=== PATIENT | female | born 1945 | race Caucasian/White ===

== ENCOUNTER 2019-01-12 18:20 | Inpatient (IN) | payer MEDICARE ==
[~2019-01-12] VITALS: Ht 167.6 cm; Wt 79.4 kg
[2019-01-12] MEDS ORDERED: Z GUARD REMEDY PASTE 57 GM TUBE TOP PRN (18:45)
[2019-01-12] MEDS ORDERED: AZEL137S7 BNOSTRILS (19:17)
[2019-01-12] MEDS ORDERED: OMEG1CAP74 PO (19:17)
[2019-01-12] MEDS ORDERED: MULT-1094 PO (19:17)
[2019-01-12] MEDS ORDERED: ACET-2154 PO (19:17)
[2019-01-12] MEDS ORDERED: DABI150C PO (19:17)
[2019-01-12] MEDS ORDERED: POLY15DR27 OP (19:17)
[2019-01-12] MEDS ORDERED: CHOL400T PO (19:17)
[2019-01-12] MEDS ORDERED: DRON400T PO (19:17)
[2019-01-12] MEDS ORDERED: ACET-2030 PO (19:17)
[2019-01-12] MEDS ORDERED: METO-356 PO (19:17)
[2019-01-12] MEDS ORDERED: GABA-786 PO (19:17)
[2019-01-12 19:23] VITALS: BP 139/75
[2019-01-12] MEDS: OXYCODONE HCL 5 MG TABLET PO PRN (23:52)
[2019-01-13 04:57] VITALS: BP 124/64
[2019-01-13 08:00] VITALS: BP 99/68
[2019-01-13] MEDS ORDERED: ACETAMINOPHEN ES 500 MG TABLET PO PRN (10:30)
[2019-01-13] MEDS: OMEGA-3 FATTY ACIDS/FISH OIL CAPSULE PO SCH (13:30)
[2019-01-13] MEDS: MULTIVIT, IRON, MIN NO. 8, FA TABLET PO SCH (13:30)
[2019-01-13] MEDS: OXYCODONE HCL 5 MG TABLET PO PRN (14:20)
[2019-01-13 14:55] LABS: *BILIRUBIN,URIN NEGATIVE (NEGATIVE); *CLARITY,URINE CLEAR (CLEAR); *COLOR,URINE YELLOW (YELLOW); *KETONES,URINE NEGATIVE (NEGATIVE); *UROBILINOGEN,URINE 0.2 E.U./dl (NORMAL); LEUKOCYTE ESTERASE ,URINE NEGATIVE (NEGATIVE); NITRITE, URINE NEGATIVE (NEGATIVE); PH,URINE 6.5 (5.0-8.0); UGLUCOSE NEGATIVE (NEGATIVE)
[2019-01-13 15:08] LABS: *BLOOD, URINE TRACE (NEGATIVE)
[2019-01-13 15:09] LABS: RBC,URINE 0-3 /HPF (0-3); SQUAMOUS EPITHELIAL CELL,UR MODERATE /HPF (NONE SEEN)
[2019-01-13 15:10] LABS: MUCUS,URINE FEW /LPF (0-FEW)
[2019-01-13 16:00] VITALS: BP 97/59
[2019-01-13] MEDS ORDERED: GABAPENTIN ENACARBIL 600 MG PO SCH (17:00)
[2019-01-13 18:23] LABS: BASOPHILS % (AUTO) 0.8 % (0.0-2.0); EOSINOPHILS # (AUTO) 0.1 K/uL (0.0-0.7); EOSINOPHILS % (AUTO) 2.1 % (0.0-7.0); HEMATOCRIT 39.5 % (31.2-41.9); HEMOGLOBIN 13.1 g/dL (10.9-14.3); LYMPHOCYTES # (AUTO) 1.4 K/uL (20.0-40.0); LYMPHOCYTES % (AUTO) 36.9 % (20.5-51.5); MEAN CORPUSCULAR HEMOGLOBIN 28.4 uug (24.7-32.8); MEAN CORPUSCULAR HGB CONC 33 g/dL (32.3-35.6); MEAN CORPUSCULAR VOLUME 85.6 fL (75.5-95.3); MONOCYTES # (AUTO) 0.2 K/uL (2.0-10.0); MONOCYTES % (AUTO) 6.6 % (0.0-11.0); NEUTROPHILS % (AUTO) 53.6 % (38.5-71.5); PLATELET COUNT (AUTO) 204 K/uL (179-408); RED BLOOD CELL COUNT(AUTO) 4.62 MIL/uL (3.63-4.92); WHITE BLOOD COUNT (AUTO) 3.8 K/uL (3.8-11.8)
[2019-01-13 18:29] LABS: CARBON DIOXIDE 30 mmol/L (21-32); CHLORIDE 103 mmol/L (98-107); CREATININE 0.8 mg/dL (0.6-1.3); GLUCOSE 138 mg/dL (74-106); POTASSIUM 4.4 mmol/L (3.5-5.1); UREA NITROGEN, BLOOD 13 mg/dL (7-18)
[2019-01-13] MEDS: POLYVINYL ALCOHOL OPHT DROPS 15 ML BOTTLE OP SCH (19:07)
[2019-01-13 21:00] VITALS: BP 131/77
[2019-01-13] MEDS: CEphaleXIN 500 MG CAPSULE PO SCH (21:00)
[2019-01-13] MEDS: GABAPENTIN 300 MG CAPSULE PO SCH (21:06)
[2019-01-14 06:09] VITALS: BP 126/60
[2019-01-14] MEDS: GABAPENTIN 300 MG CAPSULE PO SCH ×3 (06:14→22:00)
[2019-01-14 08:10] VITALS: BP 101/65
[2019-01-14] MEDS ORDERED: Medication Not On Formulary EA (Omega-3 Fatty Acids/Fish Oil (Fish Oil 1,000 Mg Softgel) PO SCH (09:00)
[2019-01-14] MEDS: CEphaleXIN 500 MG CAPSULE PO SCH ×2 (09:31→20:12)
[2019-01-14] MEDS: OXYCODONE HCL 5 MG TABLET PO PRN (09:31)
[2019-01-14] MEDS: OMEGA-3 FATTY ACIDS/FISH OIL CAPSULE PO SCH (09:32)
[2019-01-14] MEDS: POLYVINYL ALCOHOL OPHT DROPS 15 ML BOTTLE OP SCH ×2 (09:32→18:22)
[2019-01-14] MEDS: MULTIVIT, IRON, MIN NO. 8, FA TABLET PO SCH (09:34)
[2019-01-14] MEDS: METOPROLOL SUCCINATE XL 25 MG TAB.SR.24H PO SCH (09:34)
[2019-01-14] MEDS: CHOLECALCIFEROL 400 UNITS TABLET PO SCH (09:35)
[2019-01-14 17:07] VITALS: BP 101/47
[2019-01-14 20:05] VITALS: BP 105/60
[2019-01-15 04:41] VITALS: BP 112/54
[2019-01-15] MEDS: GABAPENTIN 300 MG CAPSULE PO SCH ×3 (06:20→21:03)
[2019-01-15 07:40] VITALS: BP 107/57
[2019-01-15] MEDS ORDERED: COLLAGENASE OINT 30 GM TUBE TOP SCH (09:00)
[2019-01-15] MEDS: CHOLECALCIFEROL 400 UNITS TABLET PO SCH (09:17)
[2019-01-15] MEDS: OMEGA-3 FATTY ACIDS/FISH OIL CAPSULE PO SCH (09:17)
[2019-01-15] MEDS: MULTIVIT, IRON, MIN NO. 8, FA TABLET PO SCH (09:18)
[2019-01-15] MEDS: CEphaleXIN 500 MG CAPSULE PO SCH ×2 (09:18→20:18)
[2019-01-15] MEDS: THERAHONEY GEL 1.5 OZ TUBE TOP SCH (09:19)
[2019-01-15] MEDS: METOPROLOL SUCCINATE XL 25 MG TAB.SR.24H PO SCH (09:20)
[2019-01-15] MEDS: POLYVINYL ALCOHOL OPHT DROPS 15 ML BOTTLE OP SCH ×2 (09:29→17:44)
[2019-01-15 15:14] VITALS: BP 96/59
[2019-01-15] MEDS: PHENAZOPYRIDINE HCL 100 MG TABLET PO SCH ×2 (15:41→21:03)
[2019-01-15] MEDS: SODIUM HYPOCHLORITE 0.125% 473 ML BOTTLE TP SCH (15:44)
[2019-01-15 20:30] VITALS: BP 107/60
[2019-01-16 05:18] VITALS: BP 107/56
[2019-01-16] MEDS: GABAPENTIN 300 MG CAPSULE PO SCH ×3 (06:06→21:14)
[2019-01-16] MEDS: PHENAZOPYRIDINE HCL 100 MG TABLET PO SCH ×3 (06:06→21:14)
[2019-01-16 07:00] VITALS: BP 124/70
[2019-01-16] MEDS: METOPROLOL SUCCINATE XL 25 MG TAB.SR.24H PO SCH (09:06)
[2019-01-16] MEDS: CEphaleXIN 500 MG CAPSULE PO SCH ×2 (09:06→20:34)
[2019-01-16] MEDS: OMEGA-3 FATTY ACIDS/FISH OIL CAPSULE PO SCH (09:07)
[2019-01-16] MEDS: CHOLECALCIFEROL 400 UNITS TABLET PO SCH (09:07)
[2019-01-16] MEDS: POLYVINYL ALCOHOL OPHT DROPS 15 ML BOTTLE OP SCH ×2 (09:08→16:32)
[2019-01-16] MEDS: MULTIVIT, IRON, MIN NO. 8, FA TABLET PO SCH (09:08)
[2019-01-16] MEDS: THERAHONEY GEL 1.5 OZ TUBE TOP SCH (11:33)
[2019-01-16] MEDS: SODIUM HYPOCHLORITE 0.125% 473 ML BOTTLE TP SCH (11:34)
[2019-01-16 16:18] VITALS: BP 107/53
[2019-01-16 21:52] VITALS: BP 109/65
[2019-01-17 04:49] VITALS: BP 107/62
[2019-01-17] MEDS: GABAPENTIN 300 MG CAPSULE PO SCH ×3 (06:21→21:02)
[2019-01-17] MEDS: PHENAZOPYRIDINE HCL 100 MG TABLET PO SCH ×3 (06:21→21:01)
[2019-01-17 08:06] VITALS: BP 124/67
[2019-01-17] MEDS: MULTIVIT, IRON, MIN NO. 8, FA TABLET PO SCH (08:31)
[2019-01-17] MEDS: METOPROLOL SUCCINATE XL 25 MG TAB.SR.24H PO SCH (08:31)
[2019-01-17] MEDS: OMEGA-3 FATTY ACIDS/FISH OIL CAPSULE PO SCH (08:31)
[2019-01-17] MEDS: CHOLECALCIFEROL 400 UNITS TABLET PO SCH (08:31)
[2019-01-17] MEDS: CEphaleXIN 500 MG CAPSULE PO SCH ×2 (08:31→21:01)
[2019-01-17] MEDS: POLYVINYL ALCOHOL OPHT DROPS 15 ML BOTTLE OP SCH ×2 (08:32→16:34)
[2019-01-17] MEDS: THERAHONEY GEL 1.5 OZ TUBE TOP SCH (08:38)
[2019-01-17] MEDS: SODIUM HYPOCHLORITE 0.125% 473 ML BOTTLE TP SCH (08:38)
[2019-01-17 16:38] VITALS: BP 112/62
[2019-01-17 20:00] VITALS: BP 106/67
[2019-01-17] MEDS: OXYCODONE HCL 5 MG TABLET PO PRN (21:04)
[2019-01-18 05:16] VITALS: BP 102/65
[2019-01-18] MEDS: GABAPENTIN 300 MG CAPSULE PO SCH ×3 (06:11→21:03)
[2019-01-18] MEDS: PHENAZOPYRIDINE HCL 100 MG TABLET PO SCH (06:11)
[2019-01-18 08:00] VITALS: BP 105/66
[2019-01-18] MEDS: MULTIVIT, IRON, MIN NO. 8, FA TABLET PO SCH (08:36)
[2019-01-18] MEDS: METOPROLOL SUCCINATE XL 25 MG TAB.SR.24H PO SCH (08:36)
[2019-01-18] MEDS: CHOLECALCIFEROL 400 UNITS TABLET PO SCH (08:36)
[2019-01-18] MEDS: OMEGA-3 FATTY ACIDS/FISH OIL CAPSULE PO SCH (08:36)
[2019-01-18] MEDS: THERAHONEY GEL 1.5 OZ TUBE TOP SCH (08:37)
[2019-01-18] MEDS: SODIUM HYPOCHLORITE 0.125% 473 ML BOTTLE TP SCH (08:38)
[2019-01-18] MEDS: POLYVINYL ALCOHOL OPHT DROPS 15 ML BOTTLE OP SCH ×2 (08:39→17:50)
[2019-01-18 16:00] VITALS: BP 101/59
[2019-01-18 20:44] VITALS: BP 113/56
[2019-01-18 20:45] VITALS: BP 117/86
[2019-01-18] MEDS: OXYCODONE HCL 5 MG TABLET PO PRN (20:48)
[2019-01-19 05:35] VITALS: BP 128/71
[2019-01-19] MEDS: GABAPENTIN 300 MG CAPSULE PO SCH ×3 (06:12→21:00)
[2019-01-19 08:00] VITALS: BP 127/63
[2019-01-19] MEDS: CHOLECALCIFEROL 400 UNITS TABLET PO SCH (09:25)
[2019-01-19] MEDS: METOPROLOL SUCCINATE XL 25 MG TAB.SR.24H PO SCH (09:25)
[2019-01-19] MEDS: MULTIVIT, IRON, MIN NO. 8, FA TABLET PO SCH (09:25)
[2019-01-19] MEDS: OMEGA-3 FATTY ACIDS/FISH OIL CAPSULE PO SCH (09:25)
[2019-01-19] MEDS: POLYVINYL ALCOHOL OPHT DROPS 15 ML BOTTLE OP SCH ×2 (09:29→18:32)
[2019-01-19] MEDS: SODIUM HYPOCHLORITE 0.125% 473 ML BOTTLE TP SCH (09:29)
[2019-01-19] MEDS: THERAHONEY GEL 1.5 OZ TUBE TOP SCH (09:29)
[2019-01-19] MEDS: OXYCODONE HCL 5 MG TABLET PO PRN ×2 (13:15→20:59)
[2019-01-19 16:00] VITALS: BP 113/65
[2019-01-19] MEDS ORDERED: DABIGATRAN ETEXILATE MESYLATE 75 MG CAPSULE PO SCH (19:00)
[2019-01-19 20:28] VITALS: BP 105/52
[2019-01-20 05:27] VITALS: BP 102/54
[2019-01-20] MEDS: GABAPENTIN 300 MG CAPSULE PO SCH ×3 (06:06→21:00)
[2019-01-20 07:00] VITALS: BP 130/60
[2019-01-20] MEDS: CHOLECALCIFEROL 400 UNITS TABLET PO SCH (08:03)
[2019-01-20] MEDS: MULTIVIT, IRON, MIN NO. 8, FA TABLET PO SCH (08:03)
[2019-01-20] MEDS: OMEGA-3 FATTY ACIDS/FISH OIL CAPSULE PO SCH (08:03)
[2019-01-20] MEDS: THERAHONEY GEL 1.5 OZ TUBE TOP SCH (08:04)
[2019-01-20] MEDS: POLYVINYL ALCOHOL OPHT DROPS 15 ML BOTTLE OP SCH ×2 (08:04→17:19)
[2019-01-20] MEDS: METOPROLOL SUCCINATE XL 25 MG TAB.SR.24H PO SCH (08:04)
[2019-01-20] MEDS: SODIUM HYPOCHLORITE 0.125% 473 ML BOTTLE TP SCH (08:05)
[2019-01-20 16:16] VITALS: BP 110/53
[2019-01-20 20:05] VITALS: BP 104/44
[2019-01-20] MEDS: OXYCODONE HCL 5 MG TABLET PO PRN (20:51)
[2019-01-20] MEDS ORDERED: LIDOCAINE VISCUS 2% 15 ML UDC MM PRN (22:15)
[2019-01-21 04:53] VITALS: BP 120/62
[2019-01-21] MEDS: GABAPENTIN 300 MG CAPSULE PO SCH ×3 (05:59→21:07)
[2019-01-21 08:12] VITALS: BP 136/67
[2019-01-21] MEDS: METOPROLOL SUCCINATE XL 25 MG TAB.SR.24H PO SCH (08:47)
[2019-01-21] MEDS: MULTIVIT, IRON, MIN NO. 8, FA TABLET PO SCH (08:48)
[2019-01-21] MEDS: OMEGA-3 FATTY ACIDS/FISH OIL CAPSULE PO SCH (08:48)
[2019-01-21] MEDS: CHOLECALCIFEROL 400 UNITS TABLET PO SCH (08:48)
[2019-01-21] MEDS: THERAHONEY GEL 1.5 OZ TUBE TOP SCH (08:49)
[2019-01-21] MEDS: POLYVINYL ALCOHOL OPHT DROPS 15 ML BOTTLE OP SCH ×2 (08:49→19:11)
[2019-01-21] MEDS: SODIUM HYPOCHLORITE 0.125% 473 ML BOTTLE TP SCH (08:50)
[2019-01-21 10:44] VITALS: BP 136/67
[2019-01-21 17:16] VITALS: BP 120/60
[2019-01-21 21:02] VITALS: BP 129/63
[2019-01-22 05:12] VITALS: BP 135/69
[2019-01-22] MEDS: GABAPENTIN 300 MG CAPSULE PO SCH ×2 (06:10→13:25)
[2019-01-22 07:35] VITALS: BP 130/64
[2019-01-22] MEDS ORDERED: CRANBERRY PO SCH (09:00)
[2019-01-22] MEDS ORDERED: PROBIOTIC PO SCH (09:00)
[2019-01-22 09:08] VITALS: BP 130/64
[2019-01-22] MEDS: METOPROLOL SUCCINATE XL 25 MG TAB.SR.24H PO SCH (09:08)
[2019-01-22] MEDS: OMEGA-3 FATTY ACIDS/FISH OIL CAPSULE PO SCH (09:08)
[2019-01-22] MEDS: MULTIVIT, IRON, MIN NO. 8, FA TABLET PO SCH (09:08)
[2019-01-22] MEDS: CHOLECALCIFEROL 400 UNITS TABLET PO SCH (09:09)
[2019-01-22] MEDS: THERAHONEY GEL 1.5 OZ TUBE TOP SCH (09:10)
[2019-01-22] MEDS: SODIUM HYPOCHLORITE 0.125% 473 ML BOTTLE TP SCH (09:10)
[2019-01-22] MEDS: POLYVINYL ALCOHOL OPHT DROPS 15 ML BOTTLE OP SCH (09:10)
[2019-01-22] MEDS ORDERED: SODI473S8 TP (15:58)
[2019-01-22] MEDS ORDERED: OMEG100037 PO (15:59)
[2019-01-22] MEDS ORDERED: [UNRECOGNIZED DRUG - OTHER] PO (16:00)
[2019-01-22] MEDS ORDERED: PROBIOTIC PO (16:00)
[2019-01-22] MEDS ORDERED: GABA300C PO (16:08)
[2019-01-22] MEDS ORDERED: OXYC5TAB3 PO (16:10)
[2019-01-22] MEDS ORDERED: [UNRECOGNIZED DRUG - OTHER] TP (16:11)
[2019-01-22] MEDS ORDERED: THERA HONEY TP (16:12)
[2019-01-22] MEDS ORDERED: LIDOCAINE VISCUS MM (16:16)
== END 2019-01-22 13:45 | disposition short-term general hospital (02) | DRG 560 ==
PROVIDERS: ADMIT Physical Medicine & Rehabilitation Pain Medicine; ATTEND Physical Medicine & Rehabilitation Pain Medicine
DX: S82.842D Displaced bimalleolar fracture of left lower leg, subsequent encounter for closed fracture with routine healing (principal); D68.59 Other primary thrombophilia; N39.0 Urinary tract infection, site not specified; L97.329 Non-pressure chronic ulcer of left ankle with unspecified severity; T81.89XA Other complications of procedures, not elsewhere classified, initial encounter; Y83.8 Other surgical procedures as the cause of abnormal reaction of the patient, or of later complication, without mention of misadventure at the time of the procedure; Y92.89 Other specified places as the place of occurrence of the external cause; S82.141D Displaced bicondylar fracture of right tibia, subsequent encounter for closed fracture with routine healing; V03.19 Pedestrian with other conveyance injured in collision with car, pick-up truck or van in traffic accident; I48.91 Unspecified atrial fibrillation; S32.501D Unspecified fracture of right pubis, subsequent encounter for fracture with routine healing; M19.90 Unspecified osteoarthritis, unspecified site; E66.3 Overweight; Z68.28 Body mass index [BMI] 28.0-28.9, adult; I48.0 Paroxysmal atrial fibrillation; M81.0 Age-related osteoporosis without current pathological fracture; Z85.3 Personal history of malignant neoplasm of breast; Z90.11 Acquired absence of right breast and nipple; Z92.21 Personal history of antineoplastic chemotherapy; R00.0 Tachycardia, unspecified; R26.9 Unspecified abnormalities of gait and mobility; R53.81 Other malaise; R00.2 Palpitations; Z88.8 Allergy status to other drugs, medicaments and biological substances; R07.81 Pleurodynia; Z91.81 History of falling
CPT/HCPCS: 36415; 71111; 73610; 85025; 87086; 92526; 92610; 93307; 97110; 97112; 97116; 97165; 97530; 97535; A9150

== ENCOUNTER 2019-01-22 15:25 | Inpatient (IN) | payer MEDICARE, MEDICAID ==
[~2019-01-22] VITALS: Ht 162.6 cm; Wt 79.4 kg
--- NOTE | 2019-01-22 14:05 | NUR ---
73 year old women was admitted from ARU to [facility] surge floor with left ankle wound, and right tibial fracture with history of a -fib, HTN, she is on room air, A/O x4, on cardiac diet, she is resting comfortably family at her bedside, will continue to monitor
[~2019-01-22 15:25] MED LIST: ACET-2030 PO; ACET-2154 PO; AZEL137S7 BNOSTRILS; CHOL400T PO; DABI150C PO; DRON400T PO; GABA-786 PO; METO-356 PO; MULT-1094 PO; OMEG1CAP74 PO; POLY15DR27 OP
[2019-01-22 15:33] VITALS: BP 122/50
[2019-01-22] MEDS ORDERED: SODI473S8 TP (15:58)
[2019-01-22] MEDS ORDERED: OMEG100037 PO (15:59)
[2019-01-22] MEDS ORDERED: [UNRECOGNIZED DRUG - OTHER] PO (16:00)
[2019-01-22] MEDS ORDERED: PROBIOTIC PO (16:00)
[2019-01-22] MEDS ORDERED: GABA300C PO (16:08)
[2019-01-22] MEDS ORDERED: OXYC5TAB3 PO (16:10)
[2019-01-22] MEDS ORDERED: [UNRECOGNIZED DRUG - OTHER] TP (16:11)
[2019-01-22] MEDS ORDERED: THERA HONEY TP (16:12)
[2019-01-22] MEDS ORDERED: LIDOCAINE VISCUS MM (16:16)
[2019-01-22] MEDS ORDERED: Z GUARD REMEDY PASTE 57 GM TUBE TOP PRN (17:30)
[2019-01-22] MEDS ORDERED: ONDANSETRON 4 MG/2 ML VIAL IV PRN (17:30)
[2019-01-22] MEDS ORDERED: MAGNESIUM HYDROXIDE 30 ML LIQUID UDC PO PRN (17:30)
--- NOTE | 2019-01-22 19:17 | NUR ---
change of shift report, patient is resting, no apparent distress noted, she is cooperative, BM today, all measures for safety and comfort are implemented
[2019-01-22 20:05] VITALS: BP 104/46
[2019-01-22] MEDS: GABAPENTIN 300 MG CAPSULE PO SCH (20:57)
--- NOTE | 2019-01-22 21:39 | NUR ---
A/O x4 sitting in bed visiting with friends. Left ankle wound dressing C/D/I . Denies of pain. Refusing to use ankle boot to use BSC. using bedpan. States will use the boot tomorrow. Siderails up Call light within reach bed in lowest position.
[2019-01-23 04:35] VITALS: BP 130/62
[2019-01-23 06:24] LABS: BASOPHILS % (AUTO) 0.2 % (0.0-2.0); EOSINOPHILS % (AUTO) 0.9 % (0.0-7.0); HEMATOCRIT 39.2 % (31.2-41.9); HEMOGLOBIN 12.9 g/dL (10.9-14.3); LYMPHOCYTES # (AUTO) 1.6 K/uL (20.0-40.0); LYMPHOCYTES % (AUTO) 38.6 % (20.5-51.5); MEAN CORPUSCULAR HEMOGLOBIN 28.3 uug (24.7-32.8); MEAN CORPUSCULAR HGB CONC 33 g/dL (32.3-35.6); MEAN CORPUSCULAR VOLUME 86.2 fL (75.5-95.3); MONOCYTES # (AUTO) 0.3 K/uL (2.0-10.0); MONOCYTES % (AUTO) 6.9 % (0.0-11.0); NEUTROPHILS # (AUTO) 2.2 K/uL (1.8-8.9); NEUTROPHILS % (AUTO) 53.4 % (38.5-71.5); PLATELET COUNT (AUTO) 183 K/uL (179-408); RED BLOOD CELL COUNT(AUTO) 4.54 MIL/uL (3.63-4.92); WHITE BLOOD COUNT (AUTO) 4.1 K/uL (3.8-11.8)
[2019-01-23 06:25] LABS: CARBON DIOXIDE 31 mmol/L (21-32); CHLORIDE 105 mmol/L (98-107); CHOLESTEROL 161 mg/dL (<200); CREATININE 0.6 mg/dL (0.6-1.3); GLUCOSE 90 mg/dL (74-106); HDL CHOLESTEROL 49 mg/dL (40-60); MAGNESIUM 2.3 mg/dL (1.8-2.4); POTASSIUM 4.2 mmol/L (3.5-5.1); TRIGLYCERIDES 79 MG/DL (30-150); UREA NITROGEN, BLOOD 15 mg/dL (7-18)
[2019-01-23] MEDS: GABAPENTIN 300 MG CAPSULE PO SCH ×3 (06:25→21:19)
[2019-01-23 06:33] LABS: THYROID STIMULATING HORMONE 2.076 mIU/mL (0.358-3.740)
--- NOTE | 2019-01-23 06:37 | NUR ---
Lying in bed resting comfortably siderails up Call light within reach. Denies of any distress.
--- NOTE | 2019-01-23 08:30 | NUR ---
Patient has curlex wrap on left foot, intact without drainage noted. Patient wants to have use of boot to go to bathroom however is on bedrest. Tyrese Lawler RN
[2019-01-23] MEDS: CHOLECALCIFEROL 400 UNITS TABLET PO SCH (09:27)
[2019-01-23] MEDS: POLYVINYL ALCOHOL OPHT DROPS 15 ML BOTTLE OP SCH ×2 (09:28→18:16)
[2019-01-23] MEDS: METOPROLOL SUCCINATE XL 25 MG TAB.SR.24H PO SCH (09:32)
[2019-01-23] MEDS: SODIUM HYPOCHLORITE 0.125% 473 ML BOTTLE TP SCH (09:34)
--- NOTE | 2019-01-23 11:00 | NUR ---
Patient wants to get OOB to bathroom, however is bedrest and use of bedpan only. She is voiding without difficulty. No co pain. Tyrese Lawler RN
[2019-01-23 11:13] VITALS: BP 130/70
--- NOTE | 2019-01-23 15:00 | NUR ---
Patient having debredment tomorrow, and consent signed, daughter updated and understands information received. Patient scheduled for 0700 on surgery list. Tyrese Lawler RN
[2019-01-23 15:28] VITALS: BP 134/72
--- NOTE | 2019-01-23 19:30 | NUR ---
RECEIVED REPORT FROM THE DAY SHIFT, PATIENT IS AOX4, NO DISTRESS NOTED. NPO AFTER MIDNIGHT FOR SURGICAL DEBRIDEMENT. COMFORT AND SAFETY PROVIDED, CONTINUING TO MONITOR.
[2019-01-23 20:36] VITALS: BP 130/62
[2019-01-23] MEDS: ACETAMINOPHEN ES 500 MG TABLET PO PRN (21:19)
[2019-01-24] VITALS (8 sets, daily range): BP systolic 104–133; BP diastolic 49–69
[2019-01-24] MEDS: GABAPENTIN 300 MG CAPSULE PO SCH ×3 (06:06→21:31)
--- NOTE | 2019-01-24 06:30 | NUR ---
PATIENT SLEPT WELL ALL NIGHT, NPO AFTER MIDNIGHT, TRANSFERRED TO SURGERY AT 0645, CONSENT AND PREOP CHECKLIST COMPLETED. PATIENT VOIDED PRIOR TO LEAVING THE UNIT. REPORT GIVEN TO DUST COLLECTOR ATTENDANT MIKAELA.
[2019-01-24] MEDS ORDERED: MINERAL OIL 10 ML VIAL TP ONE (06:41)
[2019-01-24] MEDS ORDERED: BUPIVACAINE PF 0.5% 30 ML VIAL ONE (06:46)
[2019-01-24] MEDS ORDERED: LIDOCAINE HCL 1% 20 ML VIAL ONE (06:46)
[2019-01-24] MEDS ORDERED: MIDAZOLAM HCL 2 MG/2 ML VIAL ONE (06:58)
[2019-01-24] MEDS ORDERED: FENTANYL CITRATE 250 MCG/5 ML AMPUL ONE (06:58)
--- NOTE | 2019-01-24 07:00 | NUR ---
Patient to go to surgery for wound debrediment left foot, and consent redone, and signed by patient. Daughter at bedside visiting with patient before surgery. Tyrese Lawler RN
[2019-01-24] MEDS ORDERED: POLYMYXIN B SULFATE 500,000 UNITS, BACITRACIN 50,000 UNITS, NORMAL SALINE 20 ML MC ONE ×3 (07:15)
[2019-01-24] MEDS: SODIUM HYPOCHLORITE 0.125% 473 ML BOTTLE TP SCH (09:00)
[2019-01-24] MEDS ORDERED: ONDANSETRON 4 MG/2 ML VIAL IV ONE (09:12)
[2019-01-24] MEDS ORDERED: EPHEDRINE SULFATE 50 MG/ML AMPUL IM ONE (09:12)
[2019-01-24] MEDS ORDERED: PROPOFOL 200 MG/20 ML BOTTLE IV ONE (09:12)
[2019-01-24] MEDS ORDERED: LIDOCAINE HCL 2% 20 ML VIAL MC ONE (09:12)
[2019-01-24] MEDS ORDERED: CEFAZOLIN 1 G VIAL IM ONE (09:12)
--- NOTE | 2019-01-24 10:00 | NUR ---
Received report from PAR nurse, and patient back to room from CT Left foot, settled in bed, and vs taken, and stable. No co pain. Left foot wound vac in place. Tyrese Lawler RN
[2019-01-24] MEDS: POLYVINYL ALCOHOL OPHT DROPS 15 ML BOTTLE OP SCH ×2 (10:50→17:50)
[2019-01-24] MEDS: CHOLECALCIFEROL 400 UNITS TABLET PO SCH (10:50)
[2019-01-24] MEDS: METOPROLOL SUCCINATE XL 25 MG TAB.SR.24H PO SCH (10:51)
[2019-01-24] MEDS: ZINC SULFATE 220 MG CAPSULE PO SCH (10:56)
[2019-01-24] MEDS ORDERED: ONDANSETRON 4 MG/2 ML VIAL IV PRN (14:15)
--- NOTE | 2019-01-24 14:30 | NUR ---
Patient received zofran 4 mg IVP earlier, and nausea resolved. Wound vac in place left foot, and operating without leak. Tyrese Lawler RN
--- NOTE | 2019-01-24 17:00 | NUR ---
Patient in bed with family at bedside, and no further co nausea, and no co pain. Tyrese Lawler RN
[2019-01-25 03:24] VITALS: BP 116/53
[2019-01-25] MEDS: GABAPENTIN 300 MG CAPSULE PO SCH ×3 (06:26→21:00)
--- NOTE | 2019-01-25 06:30 | NUR ---
RECEIVED REPORT FROM THE DAY SHIFT, PATIENT IS AOX4, NO DISTRESS NOTED. FAMILY IS AT BEDSIDE. PATIENT HAD A SURGICAL INTERVENTION IN THE MORNING WITH WOUND VAC PLACEMENT AND CT OF THE ANKLE. FAMILY IS CONCERNED ABOUT UTI AND PLAN OF CARE, WANT TO TALK TO DR CRAFT ABOUT A POSSIBLITY OF A FURTHER SURGERY. PATIENT DENIES PAIN. COMFORT AND SAFETY PROVIDED, CONTINUING TO MONITOR.
--- NOTE | 2019-01-25 06:41 | NUR ---
PATIENT SLEPT WELL, USED BEDPAN WITH ASSISTANCE. DENIES PAIN. URINE HAS MODERATELY FOUL ODOR.
[2019-01-25 07:51] LABS: BASOPHILS % (AUTO) 0.3 % (0.0-2.0); EOSINOPHILS # (AUTO) 0.1 K/uL (0.0-0.7); EOSINOPHILS % (AUTO) 2.1 % (0.0-7.0); HEMATOCRIT 39.8 % (31.2-41.9); HEMOGLOBIN 13.1 g/dL (10.9-14.3); LYMPHOCYTES # (AUTO) 1.3 K/uL (20.0-40.0); LYMPHOCYTES % (AUTO) 31.9 % (20.5-51.5); MEAN CORPUSCULAR HEMOGLOBIN 28.6 uug (24.7-32.8); MEAN CORPUSCULAR HGB CONC 33 g/dL (32.3-35.6); MEAN CORPUSCULAR VOLUME 86.9 fL (75.5-95.3); MONOCYTES # (AUTO) 0.2 K/uL (2.0-10.0); MONOCYTES % (AUTO) 5.8 % (0.0-11.0); NEUTROPHILS # (AUTO) 2.5 K/uL (1.8-8.9); NEUTROPHILS % (AUTO) 59.9 % (38.5-71.5); PLATELET COUNT (AUTO) 177 K/uL (179-408); RED BLOOD CELL COUNT(AUTO) 4.58 MIL/uL (3.63-4.92); WHITE BLOOD COUNT (AUTO) 4.2 K/uL (3.8-11.8)
[2019-01-25 08:05] LABS: CARBON DIOXIDE 31 mmol/L (21-32); CHLORIDE 104 mmol/L (98-107); CREATININE 0.7 mg/dL (0.6-1.3); GLUCOSE 83 mg/dL (74-106); POTASSIUM 4.4 mmol/L (3.5-5.1); UREA NITROGEN, BLOOD 16 mg/dL (7-18)
[2019-01-25] MEDS: ZINC SULFATE 220 MG CAPSULE PO SCH (08:32)
[2019-01-25] MEDS: CHOLECALCIFEROL 400 UNITS TABLET PO SCH (08:32)
[2019-01-25] MEDS: METOPROLOL SUCCINATE XL 25 MG TAB.SR.24H PO SCH (08:33)
[2019-01-25] MEDS: POLYVINYL ALCOHOL OPHT DROPS 15 ML BOTTLE OP SCH ×2 (08:36→16:49)
[2019-01-25] MEDS: SODIUM HYPOCHLORITE 0.125% 473 ML BOTTLE TP SCH (09:00)
[2019-01-25 11:44] VITALS: BP 95/54
--- NOTE | 2019-01-25 12:00 | NUR ---
Endorsed report to RN receiving patient. Patient in bed resting quietly, awaiting lunch. Tyrese Lawler RN
--- NOTE | 2019-01-25 12:15 | NUR ---
received patient alert and oriented in the room with no pain. patient left leg on elastoplast with wound vacuum at 125 mm hg on his left heel . no pain complaints at present.
[2019-01-25] MEDS: ASCORBIC ACID 500 MG TABLET PO SCH (13:14)
[2019-01-25 15:48] VITALS: BP 156/96
--- NOTE | 2019-01-25 15:50 | NUR ---
Discarded neurontin mid given by RN now caring for patient.
[2019-01-25] MEDS: PROTEIN SUPPLEMENT (PROSTAT) 30 ML LIQUID PO SCH (16:52)
--- NOTE | 2019-01-25 18:45 | NUR ---
patients daughter stated that her mother has complaints of burning sensation while urination. has uti history. will notify .
[2019-01-25 19:27] VITALS: BP 92/38
--- NOTE | 2019-01-25 20:00 | NUR ---
Received patient laying comfortably in bed. Family at bedside. Patient is A/O x 3, Farsi speaking but able to make needs known in Swedish. Patient is on O2 2L NC. Patient c/o pain, burning sensation during urination. MD aware. U/A was sent to lab. Patient has a dressing on the left lower extremities, clean, dry and intact. Wound vac draining serous discharge. Patient is able to wiggle toes and could feel me touching her toes upon assessment. Safety initiated. Call light within reach. Will continue to monitor.
[2019-01-25] MEDS: ACETAMINOPHEN ES 500 MG TABLET PO PRN ×2 (20:51→23:54)
[2019-01-25 20:54] LABS: *BILIRUBIN,URIN NEGATIVE (NEGATIVE); *BLOOD, URINE NEGATIVE (NEGATIVE); *COLOR,URINE YELLOW (YELLOW); *KETONES,URINE NEGATIVE (NEGATIVE); *UROBILINOGEN,URINE 0.2 E.U./dl (NORMAL); LEUKOCYTE ESTERASE ,URINE TRACE (NEGATIVE); NITRITE, URINE NEGATIVE (NEGATIVE); PH,URINE 5.5 (5.0-8.0); UGLUCOSE NEGATIVE (NEGATIVE)
[2019-01-25 21:00] LABS: *CLARITY,URINE HAZY (CLEAR)
[2019-01-25 21:04] LABS: MUCUS,URINE MODERATE /LPF (0-FEW); SQUAMOUS EPITHELIAL CELL,UR FEW /HPF (NONE SEEN)
[2019-01-26 03:27] VITALS: BP 106/60
--- NOTE | 2019-01-26 05:40 | NUR ---
Patient slept intermittently t/o the night. Reported pain 6/10 on the left leg, tylenol given, stated relief. Patient remains on O2 2L NC. IVF hep lock on the hand. Patent and intact. Dressing on the left leg C/D/I. Wound vac draining serous draining. Vital signs stable. Good urine output. Safety and comfort measures maintained t/o shift. All meds given as ordered. All needs met.
[2019-01-26] MEDS: GABAPENTIN 300 MG CAPSULE PO SCH ×3 (05:53→21:33)
[2019-01-26 06:58] LABS: CARBON DIOXIDE 33 mmol/L (21-32); CHLORIDE 105 mmol/L (98-107); CREATININE 0.6 mg/dL (0.6-1.3); GLUCOSE 105 mg/dL (74-106); POTASSIUM 4.1 mmol/L (3.5-5.1); UREA NITROGEN, BLOOD 15 mg/dL (7-18)
[2019-01-26 06:59] LABS: BASOPHILS % (AUTO) 0.3 % (0.0-2.0); EOSINOPHILS # (AUTO) 0.1 K/uL (0.0-0.7); EOSINOPHILS % (AUTO) 2.4 % (0.0-7.0); HEMATOCRIT 39.2 % (31.2-41.9); HEMOGLOBIN 12.8 g/dL (10.9-14.3); LYMPHOCYTES # (AUTO) 1.3 K/uL (20.0-40.0); LYMPHOCYTES % (AUTO) 31.1 % (20.5-51.5); MEAN CORPUSCULAR HEMOGLOBIN 28.5 uug (24.7-32.8); MEAN CORPUSCULAR HGB CONC 33 g/dL (32.3-35.6); MEAN CORPUSCULAR VOLUME 87.1 fL (75.5-95.3); MONOCYTES # (AUTO) 0.2 K/uL (2.0-10.0); MONOCYTES % (AUTO) 4.9 % (0.0-11.0); NEUTROPHILS # (AUTO) 2.6 K/uL (1.8-8.9); NEUTROPHILS % (AUTO) 61.3 % (38.5-71.5); PLATELET COUNT (AUTO) 168 K/uL (179-408); WHITE BLOOD COUNT (AUTO) 4.2 K/uL (3.8-11.8)
--- NOTE | 2019-01-26 07:25 | NUR ---
patient is resting in her bed, no distress noted, all safety and comfort measures are implemented, will continue to monitor
[2019-01-26] MEDS: CEFTRIAXONE 1 G in IV DEXTROSE 5% 50 ML IV SCH (08:46)
[2019-01-26] MEDS: METOPROLOL SUCCINATE XL 25 MG TAB.SR.24H PO SCH (08:47)
[2019-01-26] MEDS: ZINC SULFATE 220 MG CAPSULE PO SCH (08:48)
[2019-01-26] MEDS: ASCORBIC ACID 500 MG TABLET PO SCH (08:48)
[2019-01-26] MEDS: CHOLECALCIFEROL 400 UNITS TABLET PO SCH (08:48)
[2019-01-26] MEDS: POLYVINYL ALCOHOL OPHT DROPS 15 ML BOTTLE OP SCH ×2 (08:50→17:15)
[2019-01-26] MEDS: PROTEIN SUPPLEMENT (PROSTAT) 30 ML LIQUID PO SCH ×2 (08:51→17:15)
[2019-01-26] MEDS: SODIUM HYPOCHLORITE 0.125% 473 ML BOTTLE TP SCH (08:54)
[2019-01-26 11:17] VITALS: BP 94/51
[2019-01-26] MEDS: PHENAZOPYRIDINE HCL 100 MG TABLET PO SCH ×2 (14:01→21:33)
[2019-01-26 15:04] VITALS: BP 98/51
[2019-01-26] MEDS: ACETAMINOPHEN ES 500 MG TABLET PO PRN (16:21)
--- NOTE | 2019-01-26 17:55 | NUR ---
PATIENT IS RESTING NOW, NO DISTRESS NOTED, ROCEPHIN IS GIVEN PER MD ORDER, SHE STATED STILL FEELS BURNING, GIVEN OLGA CARE , PATIENT FEELS RELIEVED NOW. ALL SAFETY AND COMFORT MEASURES ARE IMPLEMENTED, BED IN LOW POSITION, LOCKED, SIDE RAILS UP X 2 WILL CONTINUE TO MONITOR
[2019-01-26 19:15] VITALS: BP 101/57
[2019-01-26] MEDS: OXYCODONE HCL 5 MG TABLET PO PRN (21:40)
[2019-01-27 03:19] VITALS: BP 113/57
[2019-01-27] MEDS: OXYCODONE HCL 5 MG TABLET PO PRN ×2 (05:47→12:20)
[2019-01-27] MEDS: GABAPENTIN 300 MG CAPSULE PO SCH ×3 (05:47→21:20)
[2019-01-27] MEDS: PHENAZOPYRIDINE HCL 100 MG TABLET PO SCH ×3 (05:47→21:20)
[2019-01-27 06:33] LABS: BASOPHILS % (AUTO) 0.4 % (0.0-2.0); EOSINOPHILS # (AUTO) 0.1 K/uL (0.0-0.7); EOSINOPHILS % (AUTO) 2.1 % (0.0-7.0); HEMATOCRIT 37.8 % (31.2-41.9); HEMOGLOBIN 12.7 g/dL (10.9-14.3); LYMPHOCYTES # (AUTO) 1.4 K/uL (20.0-40.0); LYMPHOCYTES % (AUTO) 36.4 % (20.5-51.5); MEAN CORPUSCULAR HEMOGLOBIN 29.2 uug (24.7-32.8); MEAN CORPUSCULAR HGB CONC 34 g/dL (32.3-35.6); MONOCYTES # (AUTO) 0.2 K/uL (2.0-10.0); MONOCYTES % (AUTO) 5.5 % (0.0-11.0); NEUTROPHILS # (AUTO) 2.2 K/uL (1.8-8.9); NEUTROPHILS % (AUTO) 55.6 % (38.5-71.5); PLATELET COUNT (AUTO) 151 K/uL (179-408); RED BLOOD CELL COUNT(AUTO) 4.35 MIL/uL (3.63-4.92); WHITE BLOOD COUNT (AUTO) 3.9 K/uL (3.8-11.8)
[2019-01-27 06:38] LABS: CARBON DIOXIDE 32 mmol/L (21-32); CHLORIDE 106 mmol/L (98-107); CREATININE 0.6 mg/dL (0.6-1.3); GLUCOSE 80 mg/dL (74-106); POTASSIUM 3.9 mmol/L (3.5-5.1); UREA NITROGEN, BLOOD 15 mg/dL (7-18)
--- NOTE | 2019-01-27 07:10 | NUR ---
patient received resting in the bed comfortably, all safety and comfort measures are met, wound care kit in the bed side , patient had a good night sleep per collateral analyst RN, will continue to monitor
[2019-01-27] MEDS: ASCORBIC ACID 500 MG TABLET PO SCH (07:58)
[2019-01-27] MEDS: CEFTRIAXONE 1 G in IV DEXTROSE 5% 50 ML IV SCH (07:58)
[2019-01-27] MEDS: POLYVINYL ALCOHOL OPHT DROPS 15 ML BOTTLE OP SCH ×2 (08:00→17:00)
--- NOTE | 2019-01-27 08:03 | NUR ---
PC SUPPORT SPECIALIST LEFT ANKLE ULCER WOUND TREATMENT ORDERS UPON DISCHARGE FROM HOSPITAL RECEIVED FRO DR MONGE. WOUND RN WAS TO CONFIRM WITH NINO ROWELL THAT PATIENT RECEIVED HER BOX OF HOME WOUND VAC SUPPLIES AND THEY ARE AT THE BEDSIDE.
[2019-01-27] MEDS: METOPROLOL SUCCINATE XL 25 MG TAB.SR.24H PO SCH (08:05)
[2019-01-27] MEDS: PROTEIN SUPPLEMENT (PROSTAT) 30 ML LIQUID PO SCH ×2 (09:25→16:57)
[2019-01-27] MEDS: CHOLECALCIFEROL 400 UNITS TABLET PO SCH (09:26)
[2019-01-27] MEDS: SODIUM HYPOCHLORITE 0.125% 473 ML BOTTLE TP SCH (09:27)
[2019-01-27] MEDS: ZINC SULFATE 220 MG CAPSULE PO SCH (09:27)
[2019-01-27 11:02] VITALS: BP 103/60
[2019-01-27] MEDS: ACETAMINOPHEN ES 500 MG TABLET PO PRN ×2 (12:09→12:15)
--- NOTE | 2019-01-27 16:00 | NUR ---
PATIENT'S LEFT FEET WOUND DRESSING NOT CHANGED INSTRUCTED BY STRING WINDING MACHINE OPERATOR BECAUSE CHANGED THE WOUND VAC AND WOUND DRESSING , CONNECTED TO THE HOME PORTABLE WOUND VAC WITH INSTRUCTIONS TO STAY CONNECTED THE PATIENT UNTIL D/C , THE PREVIOUS WOUND VAC WAS RETURNED FOR ENDORSEMENT TO THE CENTRAL SUPPLIES
[2019-01-27 16:11] VITALS: BP 106/63
--- NOTE | 2019-01-27 16:15 | NUR ---
PATIENT IS SLEEPING, ALL MEASURES SAFETY AND COMFORT ARE IMPLEMENTED, ALL NEEDS ARE MET
--- NOTE | 2019-01-27 18:21 | NUR ---
SHIFT REPORT GIVEN TO CHIMNEY BUILDER NURSE, PATIENT IS RESTING, NO S/S OF DISTRESS NOTED, ALL PRESCRIBED MEDS ARE GIVEN, ALL NEEDS ARE MET, SAFETY AND COMFORT WERE PROVIDED
--- NOTE | 2019-01-27 19:30 | NUR ---
Received patient lying in bed, she is awake, alert and oriented x 4. Not in any form of distress. Patient is on room air. She has an IV access on the left hand to saline lock, patent and intact.With SCD pump on the right leg. Left leg wound with dressing intact to wound vac. No complaints at the moment. Bed in low position, locked, side rails up x 2, call light within reach. Noise and lights subdued. Will continue to monitor.
[2019-01-27 20:45] VITALS: BP 103/56
--- NOTE | 2019-01-27 21:45 | NUR ---
Noted latest platelet is 151 and has due pradaorquidea pereira, verified with David Chen if we can give the medication and he said I can proceed and give the patient the medication.
[2019-01-28 03:30] VITALS: BP 115/65
[2019-01-28 05:46] VITALS: BP 120/63
[2019-01-28] MEDS: PHENAZOPYRIDINE HCL 100 MG TABLET PO SCH ×2 (06:06→14:51)
[2019-01-28] MEDS: GABAPENTIN 300 MG CAPSULE PO SCH ×2 (06:06→14:52)
--- NOTE | 2019-01-28 06:28 | NUR ---
Patient slept well throughout the night. No distress noted. Patient is on room air. Still with IV access on the left hand to saline lock, patent and intact.With SCD pump on the right leg. Left leg wound with dressing intact to wound vac. No complaints made throughout the night. Noted for discharge today with home health.
--- NOTE | 2019-01-28 07:15 | NUR ---
received report from night shift manager nurse, patient in bed awake, complains of burning with urination need. Bed in low position, side rails up x2 call light in reach.
[2019-01-28] MEDS: CEFTRIAXONE 1 G in IV DEXTROSE 5% 50 ML IV SCH (08:39)
[2019-01-28] MEDS: CHOLECALCIFEROL 400 UNITS TABLET PO SCH (08:58)
[2019-01-28] MEDS: ZINC SULFATE 220 MG CAPSULE PO SCH (08:58)
[2019-01-28] MEDS: METOPROLOL SUCCINATE XL 25 MG TAB.SR.24H PO SCH (08:58)
[2019-01-28] MEDS: ASCORBIC ACID 500 MG TABLET PO SCH (08:58)
[2019-01-28] MEDS: PROTEIN SUPPLEMENT (PROSTAT) 30 ML LIQUID PO SCH (09:01)
[2019-01-28] MEDS: SODIUM HYPOCHLORITE 0.125% 473 ML BOTTLE TP SCH (09:01)
[2019-01-28] MEDS: POLYVINYL ALCOHOL OPHT DROPS 15 ML BOTTLE OP SCH (09:01)
[2019-01-28] MEDS ORDERED: ONDA4TAB5 PO (11:05)
[2019-01-28] MEDS ORDERED: NITR100C6 PO (11:05)
[2019-01-28 11:18] VITALS: BP 123/56
--- NOTE | 2019-01-28 17:23 | NUR ---
Discharge instructions given to both daughter and patient. IV removed. Pharmacy consult by Mini, and new prescriptions and continued prescriptions called into pharmacy [facility] because patient doesn't have any medications at home due to being in SNF for 5 months. [phone]. All bedside wound supplies taken to patient's daughters home by Ambulance. Medications from pharmacy retrieved and sent with patient. Unable to take discharge photos of wound as it was closed by wound vac.
== END 2019-01-28 17:25 | disposition home health service (06) | DRG 902 ==
LOC: MEDSURG3 15:25
PROC: 0JBR0ZZ Excision of Left Foot Subcutaneous Tissue and Fascia, Open Approach (ICD-10-PCS; principal; 2019-01-24)
PROC: 2W1RX6Z Compression of Left Lower Leg using Pressure Dressing (ICD-10-PCS; 2019-01-27)
DX: T81.89XA Other complications of procedures, not elsewhere classified, initial encounter (principal); L03.116 Cellulitis of left lower limb; L97.328 Non-pressure chronic ulcer of left ankle with other specified severity; D68.59 Other primary thrombophilia; N39.0 Urinary tract infection, site not specified; S82.842G Displaced bimalleolar fracture of left lower leg, subsequent encounter for closed fracture with delayed healing; X58.XXXD Exposure to other specified factors, subsequent encounter; I48.0 Paroxysmal atrial fibrillation; Z79.01 Long term (current) use of anticoagulants; Z85.3 Personal history of malignant neoplasm of breast; M85.80 Other specified disorders of bone density and structure, unspecified site; M67.879 Other specified disorders of synovium and tendon, unspecified ankle and foot; Z90.11 Acquired absence of right breast and nipple; Z92.21 Personal history of antineoplastic chemotherapy; L97.509 Non-pressure chronic ulcer of other part of unspecified foot with unspecified severity
CPT/HCPCS: 36415; 73700; 74018; 83735; 84100; 84443; 85025; 87070; 87075; 87077; 87086; 97110; 97116; 97530; A4649; A9150; G0378; J0690; J0696; J2250; J2405; J3010; J3490; J7040; J7042; J7060

== ENCOUNTER 2019-02-21 20:38 | Inpatient (IN) | payer MEDICARE, MEDICAID ==
[~2019-02-21] VITALS: Ht 157.5 cm; Wt 63.5 kg
[~2019-02-21 20:38] MED LIST changes: -ACET-2154 PO; -DABI150C PO; -GABA-786 PO; +GABA300C PO; +NITR100C6 PO; +OMEG100037 PO; -OMEG1CAP74 PO; +ONDA4TAB5 PO; +OXYC5TAB3 PO
[2019-02-21] MEDS ORDERED: HYDROMORPHONE 1 MG/1 ML DISP.SYRIN IV ONE (21:30)
[2019-02-21] MEDS ORDERED: ONDANSETRON 4 MG/2 ML VIAL IV ONE (21:30)
[2019-02-21] MEDS ORDERED: IV NORMAL SALINE 1000 ML BAG IV ONE (21:30)
[2019-02-21 21:47] LABS: BASOPHILS % (AUTO) 0.3 % (0.0-2.0); EOSINOPHILS # (AUTO) 0.1 K/uL (0.0-0.7); EOSINOPHILS % (AUTO) 2.1 % (0.0-7.0); HEMATOCRIT 36.9 % (31.2-41.9); HEMOGLOBIN 12.2 g/dL (10.9-14.3); LYMPHOCYTES # (AUTO) 1.4 K/uL (20.0-40.0); MEAN CORPUSCULAR HEMOGLOBIN 29.1 uug (24.7-32.8); MEAN CORPUSCULAR HGB CONC 33 g/dL (32.3-35.6); MEAN CORPUSCULAR VOLUME 87.9 fL (75.5-95.3); MONOCYTES # (AUTO) 0.4 K/uL (2.0-10.0); MONOCYTES % (AUTO) 6.3 % (0.0-11.0); NEUTROPHILS % (AUTO) 67.3 % (38.5-71.5); PLATELET COUNT (AUTO) 248 K/uL (179-408); RED BLOOD CELL COUNT(AUTO) 4.19 MIL/uL (3.63-4.92)
[2019-02-21] MEDS ORDERED: ONDANSETRON 4 MG/2 ML VIAL ONE (21:51)
[2019-02-21] MEDS ORDERED: HYDROMORPHONE 1 MG/1 ML DISP.SYRIN ONE (21:51)
[2019-02-21 21:53] LABS: *CLARITY,URINE CLOUDY (CLEAR); *COLOR,URINE ORANGE (YELLOW)
[2019-02-21 21:54] LABS: CARBON DIOXIDE 30 mmol/L (21-32); CHLORIDE 105 mmol/L (98-107); CREATININE 0.8 mg/dL (0.6-1.3); GLUCOSE 97 mg/dL (74-106); POTASSIUM 4.3 mmol/L (3.5-5.1); UREA NITROGEN, BLOOD 12 mg/dL (7-18)
[2019-02-21 21:54] LABS: *BILIRUBIN,URIN NEGATIVE (NEGATIVE); *BLOOD, URINE 3+ (NEGATIVE); *KETONES,URINE NEGATIVE (NEGATIVE); NITRITE, URINE POSITIVE (NEGATIVE); UGLUCOSE NEGATIVE (NEGATIVE)
[2019-02-21 21:56] LABS: LEUKOCYTE ESTERASE ,URINE 2+ (NEGATIVE)
[2019-02-21 21:57] LABS: BACTERIA,URINE MODERATE /HPF (NONE SEEN); SQUAMOUS EPITHELIAL CELL,UR FEW /HPF (NONE SEEN); WBC,URINE 80-100 /HPF (0-3)
[2019-02-21 22:00] LABS: ALANINE AMINOTRANSFERASE 18 U/L (14-59); ALKALINE PHOSPHATASE 87 U/L (50-136); ASPARTATE AMINOTRANSFERASE 9 U/L (15-37); BILIRUBIN,DIRECT 0.1 mg/dL (0.0-0.2); BILIRUBIN,TOTAL 0.3 mg/dL (0.2-1.0); LIPASE 125 U/L (73-393); TOTAL PROTEIN, SERUM 7.5 g/dL (6.4-8.2)
[2019-02-21] MEDS ORDERED: CEPH-570 PO (22:00)
[2019-02-21] MEDS ORDERED: OMEG-143 PO (22:00)
[2019-02-21] MEDS ORDERED: CALC500T3 PO (22:00)
[2019-02-21] MEDS ORDERED: AZEL137S7 NS (22:00)
[2019-02-21] MEDS ORDERED: DRON400T PO (22:00)
[2019-02-21] MEDS ORDERED: DABI75CA3 PO (22:00)
[2019-02-21] MEDS ORDERED: MULT1TAB73 PO (22:00)
[2019-02-21] MEDS ORDERED: CHOL20004 PO (22:00)
--- NOTE | 2019-02-21 22:33 | NUR ---
PT OUT OF ER FOR CT.
[2019-02-21] MEDS ORDERED: CEFTRIAXONE 1 G in IV DEXTROSE 5% 50 ML IV ONE (23:15)
[2019-02-21] MEDS ORDERED: CEFTRIAXONE 1 G VIAL ONE (23:15)
--- NOTE | 2019-02-22 00:40 | NUR ---
Dr. Bartholomew on panel call with Junior Chen NP. Patient accepted for admission to [facility], diagnosis Pyelonephritis.
--- NOTE | 2019-02-22 00:40 | NUR ---
Note nando in [facility] - 02/22/[address] Bartholomew on panel call with Junior Chen NP. Patient accepted for admission to [facility], diagnosis Polynephritis.
[2019-02-22] MEDS ORDERED: ONDANSETRON 4 MG/2 ML VIAL IV PRN (00:45)
[2019-02-22] MEDS ORDERED: MAGNESIUM HYDROXIDE 30 ML LIQUID UDC PO PRN (00:45)
[2019-02-22] MEDS ORDERED: Z GUARD REMEDY PASTE 57 GM TUBE TOP PRN (00:45)
[2019-02-22] MEDS ORDERED: TEMAZEPAM 15 MG CAPSULE PO PRN (00:45)
[2019-02-22] MEDS ORDERED: MORPHINE SULFATE 2 MG/1 ML DISP.SYRIN IV PRN (00:45)
--- NOTE | 2019-02-22 01:10 | NUR ---
Report given to Lanie ROWELL Tele.
[2019-02-22 01:30] VITALS: BP 116/63
[2019-02-22] MEDS ORDERED: ENOXAPARIN SODIUM 40 MG/0.4 ML DISP.SYRIN SQ SCH (02:00)
[2019-02-22] MEDS: IV NS 1000 ML 1,000 ML IV PRN (02:08)
--- NOTE | 2019-02-22 02:30 | NUR ---
Pt arrived to unit at 0130 via [facility] accompanied by x1 ER staff. Pt awake, A&O x4, Farsi speaking, some Georgian. Able to communicate simple needs. Pt was able to transfer from [place] to bed by using her upper extremities, lower ext noted with severe weakness. On 2L O2 inh via n/c, terrell well, lung sounds clear bilat. Noted with R breast mastectomy for hx of breast CA. L AC 20g IV site in place and patent, infusing NS @75ml/hr, terrell well. Abd soft and nondistended, bowel sounds active x4 quadrants. Verbalized she had BM yesterday and usually goes daily. Continent and voiding freely, noted with clear orange urine. Good pericare rendered. Per ER report, pt must have been taking PO meds for UTI prior to admission. L ankle with hx of fx that became infected noted with dressing in place, C/D/I connected to wound vac with small amt of serosanguinous output. Will refer for wound care consult. No other skin issues noted. Admitted for Pyelonephritis and Recurrent UTI. Rec'd Rocephin IV in the ER. No s/s of adverse side effects noted. Oriented to unit, room, staff, board, and call light. Discussed plan of care. All needs met at this time. Will monitor.
--- NOTE | 2019-02-22 02:40 | NUR ---
Rec'd call from pharmacy to clarify pt's duplicate order for DVT ppx. Pt with order for Lovenox SQ and Pradaxa PO. Relayed to MANUEL Rose with new order to D/C Lovenox. Telephone order read back and verified. Pt made aware.
[2019-02-22 03:29] VITALS: BP 132/61
[2019-02-22] MEDS: PANTOPRAZOLE SODIUM 40 MG TABLET.DR PO SCH (06:09)
[2019-02-22 06:40] LABS: BASOPHILS % (AUTO) 0.3 % (0.0-2.0); EOSINOPHILS # (AUTO) 0.1 K/uL (0.0-0.7); HEMOGLOBIN 11.5 g/dL (10.9-14.3); LYMPHOCYTES # (AUTO) 1.4 K/uL (20.0-40.0); LYMPHOCYTES % (AUTO) 25.4 % (20.5-51.5); MEAN CORPUSCULAR HEMOGLOBIN 29.1 uug (24.7-32.8); MEAN CORPUSCULAR HGB CONC 33 g/dL (32.3-35.6); MEAN CORPUSCULAR VOLUME 88.5 fL (75.5-95.3); MONOCYTES # (AUTO) 0.4 K/uL (2.0-10.0); MONOCYTES % (AUTO) 6.9 % (0.0-11.0); NEUTROPHILS # (AUTO) 3.5 K/uL (1.8-8.9); NEUTROPHILS % (AUTO) 65.4 % (38.5-71.5); PLATELET COUNT (AUTO) 208 K/uL (179-408); RED BLOOD CELL COUNT(AUTO) 3.96 MIL/uL (3.63-4.92); WHITE BLOOD COUNT (AUTO) 5.4 K/uL (3.8-11.8)
[2019-02-22 07:03] LABS: ALANINE AMINOTRANSFERASE 12 U/L (14-59); ALKALINE PHOSPHATASE 77 U/L (50-136); ASPARTATE AMINOTRANSFERASE 9 U/L (15-37); BILIRUBIN,TOTAL 0.3 mg/dL (0.2-1.0); CARBON DIOXIDE 30 mmol/L (21-32); CHLORIDE 109 mmol/L (98-107); CREATININE 0.7 mg/dL (0.6-1.3); GLUCOSE 84 mg/dL (74-106); MAGNESIUM 1.9 mg/dL (1.8-2.4); PHOSPHOROUS 4.3 mg/dL (2.5-4.9); POTASSIUM 4.1 mmol/L (3.5-5.1); TOTAL PROTEIN, SERUM 6.7 g/dL (6.4-8.2); UREA NITROGEN, BLOOD 11 mg/dL (7-18)
--- NOTE | 2019-02-22 07:10 | NUR ---
PATIENT IN BED LAYING COMFORTABLY, NO S/S OF ACUTE DISTRESSED NOTED, BED IN LOW POSITION AND 2 SIDE RAILS UP AND BED ALARM ON. SAFETY AND COMFORT PROVIDED AT ALL TIMES AND WILL CONTINUE TO MONITOR. WILL CONTINUE TREATMENT PLAN.
[2019-02-22] MEDS: CHOLECALCIFEROL 400 UNITS TABLET PO SCH (08:49)
[2019-02-22] MEDS: OMEGA-3 FATTY ACIDS/FISH OIL CAPSULE PO SCH (08:49)
[2019-02-22] MEDS: CALCIUM CARBONATE 500 MG TABLET PO SCH (08:55)
[2019-02-22] MEDS: MULTIVIT, IRON, MIN NO. 8, FA TABLET PO SCH (08:55)
[2019-02-22] MEDS: GABAPENTIN 300 MG CAPSULE PO SCH ×2 (08:55→17:38)
[2019-02-22] MEDS: METOPROLOL SUCCINATE XL 25 MG TAB.SR.24H PO SCH (08:56)
[2019-02-22] MEDS ORDERED: DRONEDARONE HYDROCHLORIDE 400 MG TABLET PO SCH (09:00)
[2019-02-22] MEDS ORDERED: Medication Not On Formulary EA (Omega-3/Dha/Epa/Fish Oil (Fish Oil 1,000 mg Softgel) 1,0 PO SCH (09:00)
[2019-02-22] MEDS: DRONEDARONE 400 MG PO SCH (09:50)
[2019-02-22] MEDS: DABIGATRAN 75 MG PO SCH ×2 (09:52→17:34)
[2019-02-22 11:40] VITALS: BP 118/48
--- NOTE | 2019-02-22 14:28 | NUR ---
WOUND CARE CONSULT: PT PRESENTS WITH LEFT ANKLE SURGICAL WOUND, PRESENT ON ADMISSION. WOUND VAC DRESSING CHANGED USING SKIN PREP AND VAC DRAPE TO PERIWOUND AREA AND GRANUFOAM TO WOUND. VAC AT 125mmHg CONTINUOUS SETTING. PT TOLERATED WELL. C&S WAS DONE AND PHOTO TAKEN. SOME REDNESS NOTED TO RT LOWER LEG WITH EDEMA BUT NO ODOR TO WOUND AND NO TENDERNESS. RECOMMENDATIONS MADE FOR SKIN PROTECTION. DISCUSSED WITH NURSING STAFF. WILL SEE PRN. /CRESENCIO/CARLTON IN AGREEMENT WITH PLAN OF CARE. Addendum: 02/22/19 at 1431 by MANNY RADER RN Amended: Links added.
[2019-02-22] MEDS: Z GUARD REMEDY PASTE 57 GM TUBE TOP SCH ×2 (15:00→20:16)
[2019-02-22 15:53] VITALS: BP 104/50
--- NOTE | 2019-02-22 19:05 | NUR ---
PATIENT IN BED LAYING COMFORTABLY NO S/S OF ACUTE DISTRESSED NOTED, NO C/O PAIN. BED IN LOW POSITION AND 2 SIDE RAILS UP AND BED ALARM ON. SAFETY AND COMFORT PROVIDED AT ALL TIMES AND WILL CONTINUE TO MONITOR. WILL CONTINUE TREATMENT PLAN.
--- NOTE | 2019-02-22 19:11 | NUR ---
PATIENT IN BED LAYING COMFORTABLY NO S/S OF ACUTE DISTRESSED NOTED, NO C/O PAIN. BED IN LOW POSITION AND 2 SIDE RAILS UP AND BED ALARM ON. MIDLINE INSERTED. AND SAFETY AND COMFORT PROVIDED AT ALL TIMES AND WILL CONTINUE TO MONITOR. WILL CONTINUE TREATMENT PLAN.
[2019-02-22 19:31] VITALS: BP 106/41
[2019-02-22] MEDS ORDERED: CEFTRIAXONE 1 G in IV DEXTROSE 5% 50 ML IV SCH (21:00)
[2019-02-22] MEDS: PIPERACILLIN/TAZOBACTAM/D5W 3.375 G in PREMIXED 1 EACH IV SCH (21:42)
[2019-02-23 03:56] VITALS: BP 100/47
[2019-02-23] MEDS: PIPERACILLIN/TAZOBACTAM/D5W 3.375 G in PREMIXED 1 EACH IV SCH ×3 (05:07→21:21)
[2019-02-23] MEDS: ACETAMINOPHEN 325 MG TABLET PO PRN ×2 (05:51→05:55)
[2019-02-23] MEDS: PANTOPRAZOLE SODIUM 40 MG TABLET.DR PO SCH (06:02)
--- NOTE | 2019-02-23 07:12 | NUR ---
Received patient awake and alert in bed. No s/s of acute distress noted. No complaints of SOB. midline in left cephalic intact and patent. Safety and comfort provided at all times . Bed is low and locked and 2 side rails up, call light within reach. Will continue to monitor
[2019-02-23 07:32] LABS: BASOPHILS % (AUTO) 0.4 % (0.0-2.0); EOSINOPHILS # (AUTO) 0.1 K/uL (0.0-0.7); EOSINOPHILS % (AUTO) 1.6 % (0.0-7.0); HEMATOCRIT 31.8 % (31.2-41.9); HEMOGLOBIN 10.6 g/dL (10.9-14.3); LYMPHOCYTES # (AUTO) 1.2 K/uL (20.0-40.0); LYMPHOCYTES % (AUTO) 28.6 % (20.5-51.5); MEAN CORPUSCULAR HEMOGLOBIN 29.1 uug (24.7-32.8); MEAN CORPUSCULAR HGB CONC 33 g/dL (32.3-35.6); MEAN CORPUSCULAR VOLUME 87.5 fL (75.5-95.3); MONOCYTES # (AUTO) 0.2 K/uL (2.0-10.0); MONOCYTES % (AUTO) 5.8 % (0.0-11.0); NEUTROPHILS # (AUTO) 2.8 K/uL (1.8-8.9); NEUTROPHILS % (AUTO) 63.6 % (38.5-71.5); PLATELET COUNT (AUTO) 202 K/uL (179-408); RED BLOOD CELL COUNT(AUTO) 3.63 MIL/uL (3.63-4.92); WHITE BLOOD COUNT (AUTO) 4.3 K/uL (3.8-11.8)
[2019-02-23 07:51] LABS: CARBON DIOXIDE 31 mmol/L (21-32); CHLORIDE 107 mmol/L (98-107); CREATININE 0.7 mg/dL (0.6-1.3); GLUCOSE 91 mg/dL (74-106); POTASSIUM 3.9 mmol/L (3.5-5.1); UREA NITROGEN, BLOOD 7 mg/dL (7-18)
[2019-02-23] MEDS: CHOLECALCIFEROL 400 UNITS TABLET PO SCH (08:45)
[2019-02-23] MEDS: CALCIUM CARBONATE 500 MG TABLET PO SCH (08:45)
[2019-02-23] MEDS: OMEGA-3 FATTY ACIDS/FISH OIL CAPSULE PO SCH (08:45)
[2019-02-23] MEDS: DRONEDARONE 400 MG PO SCH (08:45)
[2019-02-23] MEDS: GABAPENTIN 300 MG CAPSULE PO SCH ×2 (08:45→17:42)
[2019-02-23] MEDS: MULTIVIT, IRON, MIN NO. 8, FA TABLET PO SCH (08:45)
[2019-02-23] MEDS: Z GUARD REMEDY PASTE 57 GM TUBE TOP SCH ×2 (08:46→20:56)
[2019-02-23] MEDS: METOPROLOL SUCCINATE XL 25 MG TAB.SR.24H PO SCH (08:53)
[2019-02-23] MEDS: DABIGATRAN 75 MG PO SCH ×2 (09:00→17:43)
[2019-02-23 11:58] VITALS: BP 112/57
[2019-02-23] MEDS: IV NS 1000 ML 1,000 ML IV PRN (15:47)
[2019-02-23 16:00] VITALS: BP 126/75
[2019-02-23] MEDS: HYDROCODONE/APAP 5-325MG TABLET PO PRN (18:20)
--- NOTE | 2019-02-23 18:23 | NUR ---
Received patient awake and alert in bed. No s/s of acute distress noted. No SOB noted at this time. Midline in left cephalic intact and patent. C/O pain and PRN pain medications given. Safety and comfort provided at all times. Bed in low and locked and 2 side rails up, call light within reach. Will continue to monitor and continue treatment plan.
--- NOTE | 2019-02-23 19:33 | NUR ---
Received patient awake in bed not in any form of distress. Patient is alert and oriented x 3, mainly Farsi speaking but patient able to make needs known in Lithuanian. Noted patient just received pain medication orally, will monitor for effectiveness and recurrence of any pain. Patient with midline access on the right upper arm, patent and intact to ongoing IVF, infusing well. Bed in low position, locked, side rails up x 2, call light within reach. Will continue to monitor.
[2019-02-23 20:39] VITALS: BP 98/58
[2019-02-24] MEDS: HYDROCODONE/APAP 5-325MG TABLET PO PRN ×2 (02:43→21:11)
[2019-02-24 04:43] VITALS: BP 110/50
--- NOTE | 2019-02-24 05:39 | NUR ---
Patient slept intermittently throughout the shift. Still with complaints of bladder/perineal pain relieved by prn pain medications. Ensured safety and comfort. No other complaints was made. Will contact special technical operations officer this morning to have them call patient's daughter to discuss menu preference of the patient, the patient speaks little Thai. If unable to speak with special technical operations officer will endorse to morning shift nurse.
[2019-02-24] MEDS: PANTOPRAZOLE SODIUM 40 MG TABLET.DR PO SCH (06:08)
[2019-02-24] MEDS: PIPERACILLIN/TAZOBACTAM/D5W 3.375 G in PREMIXED 1 EACH IV SCH ×2 (06:08→14:09)
--- NOTE | 2019-02-24 07:25 | NUR ---
RECEIVED PATIENT ON BED, ASLEEP, FARSI SPEAKING. NO ACUTE DISTRESS NOTED AT THIS TIME. MIDLINE ON LEFT SEPHALIC VEIN #18 INTACT AND PATENT CURRENTLY RUNNING ZOSYN IVATB INFUSING WELL. DRESSING ON LEFT ANKLE CLEAN AND INTACT W/ WOUND VACC DRAINING SMALL AMOUNT OF FLUID. APPEARS COMFORTABLE. SAFETY PRECS OBSERVED AT ALL TIMES. CALL LIGHT WITHIN REACH. WILL CONTINUE TO MONITOR CLOSELY
[2019-02-24] MEDS: METOPROLOL SUCCINATE XL 25 MG TAB.SR.24H PO SCH (09:00)
[2019-02-24] MEDS: OMEGA-3 FATTY ACIDS/FISH OIL CAPSULE PO SCH (09:26)
[2019-02-24] MEDS: CULTURELLE CAPSULE PO SCH ×2 (09:26→21:11)
[2019-02-24] MEDS: CALCIUM CARBONATE 500 MG TABLET PO SCH (09:26)
[2019-02-24] MEDS: DABIGATRAN 75 MG PO SCH ×2 (09:30→17:10)
[2019-02-24] MEDS: GABAPENTIN 300 MG CAPSULE PO SCH ×3 (09:31→17:11)
[2019-02-24] MEDS: CHOLECALCIFEROL 400 UNITS TABLET PO SCH (09:31)
[2019-02-24] MEDS: DRONEDARONE 400 MG PO SCH (09:31)
[2019-02-24] MEDS: MULTIVIT, IRON, MIN NO. 8, FA TABLET PO SCH (09:33)
[2019-02-24] MEDS: Z GUARD REMEDY PASTE 57 GM TUBE TOP SCH ×2 (09:36→21:40)
[2019-02-24 11:42] VITALS: BP 110/64
--- NOTE | 2019-02-24 13:49 | NUR ---
WOUND CARE FOLLOWUP: PT SEEN FOR VAC DRESSING CHANGE. VAC DRESSING REMOVED AND FLUCTUANT RED AREA NOTED ADJACENT TO WOUND. DR MONGE NOTIFIED. NEW ORDERS RECEIVED. VAC DISCONTINUED. DISCUSSED NEW ORDERS WITH NURSING STAFF. NEW PHOTO TAKEN. LEG ELEVATED ON PILLOW. WILL SEE PRN. Addendum: 02/24/19 at 1351 by MANNY RADER RN Amended: Links added.
[2019-02-24 15:28] VITALS: BP 106/54
[2019-02-24] MEDS: GENTAMICIN SULFATE 0.1% OINT 15 GM TUBE TOP SCH ×2 (15:33→17:11)
--- NOTE | 2019-02-24 19:30 | NUR ---
PATIENT RECEIVED LYING IN BED WITH DAUGHTER AT BEDSIDE. A/OX3. COMFORT MEASURES AND SAFETY MEASURES PROVIDED. BED IN LOWEST POSITION. SIDE RAILS UP X2. BED ALARM ON. CALL LIGHT WITHIN REACH.
--- NOTE | 2019-02-24 19:50 | NUR ---
CLINICAL PHARMACY NOTE:VANCOMYCIN DOSING Request for vancomycin dosing on 73 y/o female 157.48 cm 64.5kg for cellulitis Temp 98.4F BUN 7 Scr 0.7 WBC 4.3 urine culture Ecoli sensitive to ceftriaxone (also started) wound culture staph a. Start vancomycin 1gm ivpb q18 hours. Estimated trough 15. Will order trough level prior to 4th dose. Will continue to monitor
[2019-02-24 20:06] VITALS: BP 130/69
[2019-02-24] MEDS: CEFTRIAXONE 1 G in IV DEXTROSE 5% 50 ML IV SCH (21:35)
[2019-02-24] MEDS ORDERED: VANCOMYCIN IV 1 G in PREMIXED 0 EACH IV SCH (22:00)
[2019-02-24] MEDS: IV NS 1000 ML 1,000 ML IV PRN (22:32)
[2019-02-25 05:09] VITALS: BP 126/70
--- NOTE | 2019-02-25 05:50 | NUR ---
PATIENT INTERMITTENTLY SLEEPING. A/O X3. SAFETY AND COMFORT MEASURES PROVIDED. BED RAILS X2, BED IN LOWEST POSITION, BED ALARM ON, CALL LIGHT WITHIN REACH.
[2019-02-25] MEDS: PANTOPRAZOLE SODIUM 40 MG TABLET.DR PO SCH (06:30)
[2019-02-25] MEDS: DRONEDARONE 400 MG PO SCH (09:00)
[2019-02-25] MEDS: DABIGATRAN 75 MG PO SCH (09:00)
[2019-02-25] MEDS: Z GUARD REMEDY PASTE 57 GM TUBE TOP SCH ×2 (09:00→21:02)
[2019-02-25] MEDS: CALCIUM CARBONATE 500 MG TABLET PO SCH (09:00)
[2019-02-25] MEDS: GABAPENTIN 300 MG CAPSULE PO SCH ×3 (09:00→19:03)
[2019-02-25] MEDS: CHOLECALCIFEROL 400 UNITS TABLET PO SCH (09:00)
[2019-02-25] MEDS: CULTURELLE CAPSULE PO SCH ×2 (09:00→21:02)
[2019-02-25] MEDS: OMEGA-3 FATTY ACIDS/FISH OIL CAPSULE PO SCH (09:00)
[2019-02-25] MEDS: GENTAMICIN SULFATE 0.1% OINT 15 GM TUBE TOP SCH ×2 (09:00→19:00)
[2019-02-25] MEDS: MULTIVIT, IRON, MIN NO. 8, FA TABLET PO SCH (09:00)
[2019-02-25] MEDS: METOPROLOL SUCCINATE XL 25 MG TAB.SR.24H PO SCH (09:00)
--- NOTE | 2019-02-25 10:43 | NUR ---
CLINICAL PHARMACY NOTE:VANCOMYCIN DOSING S To continue vancomycin dosing on 73 y/o female for cellulitis O Temp 97.8F BUN 7 (02/23) Scr 0.7 (02/23) WBC 4.3 (02/23) ht 157 cm wt 63 kg Plan Will continue same dose of vancomycin 1gm ivpb q18 hours for today. 2nd dose due today at 1600. Will monitor renal function & adjust the dose if needed. Will order trough level prior to 4th dose (not yet ordered) . Will continue to monitor
[2019-02-25 12:22] VITALS: BP 154/76
[2019-02-25 15:26] VITALS: BP 101/47
[2019-02-25 20:25] VITALS: BP 147/59
[2019-02-25] MEDS: CEFTRIAXONE 1 G in IV DEXTROSE 5% 50 ML IV SCH (21:17)
--- NOTE | 2019-02-25 22:00 | NUR ---
Med Surg Nursing Note: Lying in bed A/O x4 Farsi speaking with limited Angolan. On R/A I.V. N.S. 0.9% infusing @ 100 cc hr to 18 ga midline without difficulty. Left ankle dressing C/D/I. Denies of pain or any distress. Side Rails up call light within reach. Bed alarm on.
[2019-02-26] MEDS: HYDROCODONE/APAP 5-325MG TABLET PO PRN (00:18)
[2019-02-26] MEDS: IV NS 1000 ML 1,000 ML IV PRN (05:42)
[2019-02-26] MEDS: PANTOPRAZOLE SODIUM 40 MG TABLET.DR PO SCH (06:13)
--- NOTE | 2019-02-26 06:14 | NUR ---
Nursing Note: Lying in bed eyes closed resp even and unlabored resting comfortably IV N.S. cont infusing @ 100 cc hr to Left upper arm. Siderails up Call light within reach. Bed alarm on.
[2019-02-26 06:34] VITALS: BP 135/69
[2019-02-26 08:20] VITALS: BP 142/76
[2019-02-26] MEDS: CHOLECALCIFEROL 400 UNITS TABLET PO SCH (08:49)
[2019-02-26] MEDS: OMEGA-3 FATTY ACIDS/FISH OIL CAPSULE PO SCH (08:49)
[2019-02-26] MEDS: MULTIVIT, IRON, MIN NO. 8, FA TABLET PO SCH (08:49)
[2019-02-26] MEDS: GABAPENTIN 300 MG CAPSULE PO SCH ×3 (08:49→18:14)
[2019-02-26] MEDS: CALCIUM CARBONATE 500 MG TABLET PO SCH (08:49)
[2019-02-26] MEDS: CULTURELLE CAPSULE PO SCH ×2 (08:49→21:10)
[2019-02-26] MEDS: METOPROLOL SUCCINATE XL 25 MG TAB.SR.24H PO SCH (08:51)
[2019-02-26] MEDS ORDERED: SODIUM HYPOCHLORITE 0.125% 473 ML BOTTLE TP SCH (09:00)
[2019-02-26] MEDS: GENTAMICIN SULFATE 0.1% OINT 15 GM TUBE TOP SCH ×2 (09:00→18:14)
[2019-02-26] MEDS: DRONEDARONE 400 MG PO SCH (09:00)
[2019-02-26 11:28] VITALS: BP 137/80
[2019-02-26] MEDS: Z GUARD REMEDY PASTE 57 GM TUBE TOP SCH ×2 (13:35→21:11)
[2019-02-26] MEDS: SULFAMETH/TRIMETH 800/160 MG TABLET PO SCH ×2 (14:46→21:10)
[2019-02-26] MEDS: SODIUM HYPOCHLORITE 0.125% 473 ML BOTTLE TP SCH (14:47)
[2019-02-26 18:12] VITALS: BP 140/67
--- NOTE | 2019-02-26 18:53 | NUR ---
patient denies pain and able to ambulate to bathroom with left mold on and with 1 assist.
--- NOTE | 2019-02-26 19:50 | NUR ---
PATIENT ALERT ORIENTED, NO SOB NO CHEST PAIN NOTED, LEFT LOWER EXTREMETY WITH DRESS, NO DRAINAGE NOTED. PATIENT SIGNED SURGICAL CONSENT, SON WAS AWARE ALSO. NO COMPLAIN OF PAIN AT THIS TIME. INSTRUCTED PATIENT THAT WE NEED STOOL SAMPLE FOR TEST. PATIENT CONTINENT OF BOWEL AND BLADDER, ASSISTED WITH TOILETING, USED FWW. TOLERATE WELL.
[2019-02-26 20:12] VITALS: BP 144/72
[2019-02-27] MEDS: IV NS 1000 ML 1,000 ML IV PRN ×2 (01:52→21:54)
[2019-02-27 04:38] LABS: *OCCULT BLOOD STOOL POSITIVE (NEGATIVE)
[2019-02-27 05:49] VITALS: BP 133/79
[2019-02-27] MEDS: PANTOPRAZOLE SODIUM 40 MG TABLET.DR PO SCH (06:13)
--- NOTE | 2019-02-27 06:52 | NUR ---
PATIENT ALERT ORIENTED, NO SOB NO CHEST PAIN, NO COMPLAIN OF PAIN AT THIS TIME. REMAINS NPO AT THIS TIME. DRESSING ON LEFT LOWER EXTREMETY DRESSING INTACT, TX WAS DONE EARLIER. ASSISTED WITH TOILETING, CONT TO MONITOR.
[2019-02-27 08:07] LABS: BASOPHILS % (AUTO) 0.5 % (0.0-2.0); EOSINOPHILS # (AUTO) 0.1 K/uL (0.0-0.7); EOSINOPHILS % (AUTO) 2.6 % (0.0-7.0); HEMATOCRIT 37.7 % (31.2-41.9); HEMOGLOBIN 12.4 g/dL (10.9-14.3); LYMPHOCYTES # (AUTO) 0.9 K/uL (20.0-40.0); LYMPHOCYTES % (AUTO) 21.9 % (20.5-51.5); MEAN CORPUSCULAR HEMOGLOBIN 29.1 uug (24.7-32.8); MEAN CORPUSCULAR HGB CONC 33 g/dL (32.3-35.6); MEAN CORPUSCULAR VOLUME 88.2 fL (75.5-95.3); MONOCYTES # (AUTO) 0.2 K/uL (2.0-10.0); MONOCYTES % (AUTO) 5.6 % (0.0-11.0); NEUTROPHILS % (AUTO) 69.4 % (38.5-71.5); PLATELET COUNT (AUTO) 213 K/uL (179-408); RED BLOOD CELL COUNT(AUTO) 4.27 MIL/uL (3.63-4.92); WHITE BLOOD COUNT (AUTO) 4.3 K/uL (3.8-11.8)
[2019-02-27 08:34] LABS: CARBON DIOXIDE 29 mmol/L (21-32); CHLORIDE 109 mmol/L (98-107); CREATININE 0.6 mg/dL (0.6-1.3); GLUCOSE 85 mg/dL (74-106); POTASSIUM 3.9 mmol/L (3.5-5.1); UREA NITROGEN, BLOOD 5 mg/dL (7-18)
[2019-02-27] MEDS: DRONEDARONE 400 MG PO SCH ×2 (09:00→16:30)
[2019-02-27] MEDS: CHOLECALCIFEROL 400 UNITS TABLET PO SCH (09:00)
[2019-02-27] MEDS: CULTURELLE CAPSULE PO SCH ×2 (09:00→21:52)
[2019-02-27] MEDS: MULTIVIT, IRON, MIN NO. 8, FA TABLET PO SCH (09:00)
[2019-02-27] MEDS: METOPROLOL SUCCINATE XL 25 MG TAB.SR.24H PO SCH ×2 (09:00→16:30)
[2019-02-27] MEDS: GABAPENTIN 300 MG CAPSULE PO SCH ×3 (09:00→17:39)
[2019-02-27] MEDS: SULFAMETH/TRIMETH 800/160 MG TABLET PO SCH ×2 (09:00→21:52)
[2019-02-27] MEDS: OMEGA-3 FATTY ACIDS/FISH OIL CAPSULE PO SCH (09:00)
[2019-02-27] MEDS: CALCIUM CARBONATE 500 MG TABLET PO SCH (09:00)
--- NOTE | 2019-02-27 09:05 | NUR ---
Clarified With Jose Maria Leyva CAMPUS ADMINISTRATOR regarding due medications since patient is on NPO and current vital signs, per CAMPUS ADMINISTRATOR hold all due medications at this time.
[2019-02-27] MEDS ORDERED: PHENYLEPHRINE/SHARK LIVER/CCB 1 EACH SUPP.RECT RC PRN (10:30)
[2019-02-27] MEDS: Z GUARD REMEDY PASTE 57 GM TUBE TOP SCH ×2 (10:42→21:57)
[2019-02-27] MEDS: GENTAMICIN SULFATE 0.1% OINT 15 GM TUBE TOP SCH (10:42)
[2019-02-27] MEDS: SODIUM HYPOCHLORITE 0.125% 473 ML BOTTLE TP SCH (10:43)
[2019-02-27 11:00] VITALS: BP 113/65
[2019-02-27] MEDS ORDERED: POLYMYXIN B SULFATE 500,000 UNITS, BACITRACIN 50,000 UNITS, NORMAL SALINE 20 ML MC ONE ×3 (11:00)
[2019-02-27] MEDS: SHARK LIVER OIL/PETROLAT OINT 60 GM TUBE RC PRN (12:30)
--- NOTE | 2019-02-27 13:17 | NUR ---
Patient picked up by OR nurses for left lower extremity hardware removal, excisional debridement and application of wound vac accompanied by daughter. Patient remains alert, not in any form of distress, no complain at this time.
[2019-02-27] MEDS ORDERED: FENTANYL CITRATE 100 MCG/2 ML AMPUL ONE (14:03)
[2019-02-27] MEDS ORDERED: MIDAZOLAM HCL 2 MG/2 ML VIAL ONE (14:03)
[2019-02-27] MEDS ORDERED: LIDOCAINE 0.5% MPF 50 ML VIAL ONE (14:16)
[2019-02-27] MEDS ORDERED: BUPIVACAINE PF 0.5% 30 ML VIAL ONE (14:16)
[2019-02-27] MEDS ORDERED: CEFAZOLIN 1 G VIAL MC ONE (15:01)
[2019-02-27] MEDS ORDERED: METOCLOPRAMIDE HCL 10 MG/2 ML VIAL IV ONE (15:01)
[2019-02-27] MEDS ORDERED: IV LACTATED RINGERS SOLUTION 1,000 ML BAG IV ONE (15:01)
[2019-02-27] MEDS ORDERED: IRR NORMAL SALINE IRRIGATION 2000 ML BOTTLE IR ONE (15:01)
[2019-02-27] MEDS ORDERED: SEVOFLURANE 250 ML BOTTLE IH ONE (15:01)
[2019-02-27] MEDS ORDERED: PROPOFOL 200 MG/20 ML BOTTLE IV ONE (15:01)
[2019-02-27] MEDS ORDERED: ONDANSETRON 4 MG/2 ML VIAL IV ONE (15:01)
[2019-02-27 16:27] VITALS: BP 123/74
[2019-02-27] MEDS ORDERED: DILTIAZEM HCL 50 MG IV IV ONE (16:29)
--- NOTE | 2019-02-27 16:44 | NUR ---
Patient back from OR, now on telemetry with HR of 154. Notified Jose Maria Leyva NP and said administer multaq 400mg and metoprolol 25mg PO now.
--- NOTE | 2019-02-27 17:40 | NUR ---
Patient in bed, awake, not in any form of distress. Wound vac in place at left ankle set at 125mmHg. Family at bedside. Patient denies any pain or discomfort at this time. Assisted with her needs. Call light and frequently used items placed within reach.
--- NOTE | 2019-02-27 19:15 | NUR ---
PATIENT ALERT ORIENTED NO SOB NO CHEST PAIN, TELE MONITOR SINUS RHYTHN AT 76. PATIENT WITH WOUND VAC ON LEFT LOWER EXTREMITY, DRAINING WITH SMALL AMOUNT OF SEROSANGENIOUS AT THIS TIME. PATIENT HAS SOME PAIN BUT REFUSED TO TAKE PAIN MEDS AT THIS TIME. PREFER TO TAKE IT LATER ON. CALL LIGHT WITHIN REACH.
--- NOTE | 2019-02-27 19:58 | NUR ---
PATIENT POSITIVE FOR OCCULT BLOOD, NOTIFY JAEL FRYE CANCELING MACHINE OPERATOR WITH ORDER REPEAT CBC AT THIS TIME. CANCELING MACHINE OPERATOR STATED THAT PATIENT HAS HEMORRHOIDS POSSIBLE CAUSE OF OB. PATIENT HAS HEMORRHOIDS OINTMENT ORDERED. WILL CONT TO MONITOR.
[2019-02-27 20:00] VITALS: BP 106/60
[2019-02-27] MEDS: HYDROCODONE/APAP 5-325MG TABLET PO PRN (21:53)
[2019-02-28] VITALS: BP 106/55
--- NOTE | 2019-02-28 03:43 | NUR ---
JAEL FRYE NP HAS ORDER FOR WOUND CULTURE, NOTIFLeón ELDER THAT PATIENT WOUND ON LLE WAS ON WOUND VAC DONE BY DR. JONAS SURGEON AND WOULD BE ABLE TO COLLECT SPECIMEN AT THIS TIME. Addendum: 02/28/19 at 0401 by KYLAH ROBERSON RN JAEL FRYE NP HAS ORDER FOR WOUND CULTURE, NOTIFLeón ELDER THAT PATIENT WOUND ON LLE WAS ON WOUND VAC DONE BY DR. JONAS SURGEON AND WOULD BE ABLE TO COLLECT SPECIMENT AT THIS TIME, CHARTING IN ERROR.
[2019-02-28 04:00] VITALS: BP 120/50
--- NOTE | 2019-02-28 04:01 | NUR ---
JAEL FRYE HAS NEW ORDER FOR WOUND CULTURE, NOTIFY JAEL FRYE WAGE ADJUSTER THAT PATIENT WOUND IS ON WOUND VAC DONE BY DR JONAS AND WOULD NOT BE ABLE TO COLLECT SPECIMEN AT THIS TIME. WILL NOTIFY AM NURSE TO COLLECT SPECIMEN WHEN DRESSING IS CHANGED ORDERED.
[2019-02-28] MEDS: PANTOPRAZOLE SODIUM 40 MG TABLET.DR PO SCH (06:13)
--- NOTE | 2019-02-28 06:56 | NUR ---
PATIENT SLEPT MOST OF THE NIGHT, TELE MONITOR SINUS RHYTHM, HR 76, CONT ON PAIN MANAGEMENT OF LEFT LOWER EXTREMITY. LEFT LOWER EXTREMETY DRESSING INTACT, WITH WOUND VAC, SEALD AT THIS TIME. WITH SEROSANGENOUS DRAINAGE 40CC. ASSISTED WITH TOILETING, CALL LIGHT WITHIN REACH.
--- NOTE | 2019-02-28 07:21 | NUR ---
REPEAT CBC DUE TO POSITIVE OB, ORDERED BY MELVA ELDER NP.
[2019-02-28 08:26] LABS: BASOPHILS % (AUTO) 0.7 % (0.0-2.0); EOSINOPHILS # (AUTO) 0.1 K/uL (0.0-0.7); EOSINOPHILS % (AUTO) 2.1 % (0.0-7.0); HEMATOCRIT 33.4 % (31.2-41.9); LYMPHOCYTES # (AUTO) 0.8 K/uL (20.0-40.0); LYMPHOCYTES % (AUTO) 20.3 % (20.5-51.5); MEAN CORPUSCULAR HEMOGLOBIN 29.3 uug (24.7-32.8); MEAN CORPUSCULAR HGB CONC 33 g/dL (32.3-35.6); MEAN CORPUSCULAR VOLUME 89.3 fL (75.5-95.3); MONOCYTES # (AUTO) 0.2 K/uL (2.0-10.0); MONOCYTES % (AUTO) 5.6 % (0.0-11.0); NEUTROPHILS # (AUTO) 2.8 K/uL (1.8-8.9); NEUTROPHILS % (AUTO) 71.3 % (38.5-71.5); PLATELET COUNT (AUTO) 159 K/uL (179-408); RED BLOOD CELL COUNT(AUTO) 3.74 MIL/uL (3.63-4.92)
[2019-02-28] MEDS: GABAPENTIN 300 MG CAPSULE PO SCH ×3 (08:28→16:48)
[2019-02-28] MEDS: CHOLECALCIFEROL 400 UNITS TABLET PO SCH (08:28)
[2019-02-28] MEDS: SULFAMETH/TRIMETH 800/160 MG TABLET PO SCH ×2 (08:28→21:52)
[2019-02-28] MEDS: METOPROLOL SUCCINATE XL 25 MG TAB.SR.24H PO SCH (08:29)
[2019-02-28] MEDS: CALCIUM CARBONATE 500 MG TABLET PO SCH (08:31)
[2019-02-28] MEDS: DRONEDARONE 400 MG PO SCH (08:31)
[2019-02-28] MEDS: MULTIVIT, IRON, MIN NO. 8, FA TABLET PO SCH (08:31)
[2019-02-28] MEDS: Z GUARD REMEDY PASTE 57 GM TUBE TOP SCH ×2 (08:31→21:00)
[2019-02-28] MEDS: OMEGA-3 FATTY ACIDS/FISH OIL CAPSULE PO SCH (08:31)
[2019-02-28] MEDS: CULTURELLE CAPSULE PO SCH ×2 (08:31→21:52)
[2019-02-28] MEDS: SODIUM HYPOCHLORITE 0.125% 473 ML BOTTLE TP SCH (08:43)
[2019-02-28] MEDS: IV NS 1000 ML 1,000 ML IV PRN (10:30)
[2019-02-28 11:00] VITALS: BP 110/53
--- NOTE | 2019-02-28 11:47 | NUR ---
PATIENT AO 4, NO SOB OR PAIN REPORTED, DRESSING WAS CHANGED YESTERDAY AND PER ORDERS IT IS M/W/F TELE MONITOR SINUS RHYTHM, HR 76, CONT ON PAIN MANAGEMENT PER PATIENT REQUEST. LEFT LOWER EXTREMITY DRESSING INTACT, WITH WOUND VAC, SEALED AT THIS TIME @150. WITH SEROSANGENOUS DRAINAGE 70CC. ASSISTED WITH TOILETING, PT WALKED THE PATIENT WITH ASSIST, BED BATH GIVEN BY GUANAKITO HODGE CALL LIGHT WITHIN REACH.
--- NOTE | 2019-02-28 13:00 | NUR ---
US BLADDER BEFORE 121ML --> AFTER 0 ML 34 MIN LATER PATIENT WANTED TO USE THE BATHROOM BEFORE 214ML--> 60 ML REPORTED TO MICHELLE ADAMSON
[2019-02-28] MEDS: PHENAZOPYRIDINE HCL 100 MG TABLET PO SCH ×2 (14:09→21:52)
--- NOTE | 2019-02-28 14:19 | NUR ---
WOUND CARE: PT HAS HOSPITAL WOUND VAC ([facility]) WHICH IS FUNCTIONING WELL WITH SMALL AMOUNT OF RED DRAINAGE IN CANISTER. DRESSING IS DRY AND INTACT. PLAN IS TO CHANGE VAC DRESSING TOMORROW.
[2019-02-28 15:00] VITALS: BP 121/66
[2019-02-28] MEDS: SHARK LIVER OIL/PETROLAT OINT 60 GM TUBE RC PRN (16:49)
[2019-02-28] MEDS: CLOTRIMAZOLE 1% VAG CREAM 45 GM TUBE VG SCH ×2 (17:47→21:53)
[2019-02-28] MEDS: VITAMINS A AND D OINT TP PRN ×2 (17:47→21:53)
[2019-02-28] MEDS: ALFUZOSIN HCL 10 MG TAB.SR.24H PO SCH (17:49)
--- NOTE | 2019-02-28 19:50 | NUR ---
PATIENT AO 4, NO SOB OR PAIN REPORTED, DRESSING WAS CHANGED YESTERDAY AND PER ORDERS IT IS M/W/F TELE MONITOR SINUS RHYTHM, HR 76, CONT ON PAIN MANAGEMENT PER PATIENT REQUEST. LEFT LOWER EXTREMITY DRESSING INTACT, WITH WOUND VAC, SEALED AT THIS TIME @150. WITH SEROSANGENOUS DRAINAGE 100CC. ASSISTED WITH TOILETING, PT WALKED THE PATIENT WITH ASSIST, ASSISTED TO THE BATHROOM ORDERS CARED OUT CALL LIGHT WITHIN REACH. SAFETY MAINTAINED
[2019-02-28 20:00] VITALS: BP 135/61
[2019-02-28] MEDS ORDERED: NORTRIPTYLINE HCL 10 MG CAPSULE PO SCH (21:00)
[2019-03-01 04:00] VITALS: BP 140/80
--- NOTE | 2019-03-01 06:00 | NUR ---
Pt is A&O x 3, No acute respiratory distress noted. Pt c/o itching and burning to vaginal area. Vaginal cream applied. Wound vac attached to left ankle wound. Dressing change MWF by wound care nurse. Midline to LUE - NS @ 75 cc/hr. Boot to R foot when OOB. Walker at bedside. Up to the bathroom to void. All needs met.
[2019-03-01] MEDS: PHENAZOPYRIDINE HCL 100 MG TABLET PO SCH ×2 (06:09→13:13)
[2019-03-01] MEDS: PANTOPRAZOLE SODIUM 40 MG TABLET.DR PO SCH (06:09)
[2019-03-01 06:57] LABS: BASOPHILS % (AUTO) 0.3 % (0.0-2.0); EOSINOPHILS # (AUTO) 0.1 K/uL (0.0-0.7); EOSINOPHILS % (AUTO) 2.9 % (0.0-7.0); HEMATOCRIT 31.3 % (31.2-41.9); HEMOGLOBIN 10.4 g/dL (10.9-14.3); LYMPHOCYTES # (AUTO) 0.9 K/uL (20.0-40.0); LYMPHOCYTES % (AUTO) 35.4 % (20.5-51.5); MEAN CORPUSCULAR HEMOGLOBIN 29.5 uug (24.7-32.8); MEAN CORPUSCULAR HGB CONC 33 g/dL (32.3-35.6); MEAN CORPUSCULAR VOLUME 88.4 fL (75.5-95.3); MONOCYTES # (AUTO) 0.2 K/uL (2.0-10.0); MONOCYTES % (AUTO) 6.9 % (0.0-11.0); NEUTROPHILS # (AUTO) 1.4 K/uL (1.8-8.9); NEUTROPHILS % (AUTO) 54.5 % (38.5-71.5); PLATELET COUNT (AUTO) 162 K/uL (179-408); RED BLOOD CELL COUNT(AUTO) 3.54 MIL/uL (3.63-4.92); WHITE BLOOD COUNT (AUTO) 2.7 K/uL (3.8-11.8)
[2019-03-01 07:09] LABS: CARBON DIOXIDE 29 mmol/L (21-32); CHLORIDE 108 mmol/L (98-107); CREATININE 0.6 mg/dL (0.6-1.3); GLUCOSE 83 mg/dL (74-106); MAGNESIUM 1.9 mg/dL (1.8-2.4); PHOSPHOROUS 3.5 mg/dL (2.5-4.9); POTASSIUM 3.8 mmol/L (3.5-5.1); UREA NITROGEN, BLOOD 9 mg/dL (7-18)
--- NOTE | 2019-03-01 07:10 | NUR ---
RECEIVED PATIENT IN BED, AOX4. CONTINUES TO HAVE BURNING AND ITCHING TO VAGINAL AREA. WOUND VAC TO LEFT. ANKLE IN PLACE. MIDLINE TO LEFT ARM WITH NS AT 75 CC/HR, LINE INTACT AND FLUSHING WELL. PATENT DENIES PAIN OR SOB AT THIS TIME. PATIENT ABLE TO AMBULATE TO BATHROOM WITH BOOT TO LT. LET WITH AMBULATION. ALL NEEDS MET AT THIS TIME. SAFETY AND FALL PREVENTION MANAGEMENT IN PLACE. WILL CONTINUE TO MONITOR.
[2019-03-01] MEDS: GABAPENTIN 300 MG CAPSULE PO SCH ×3 (09:03→16:26)
[2019-03-01] MEDS: CULTURELLE CAPSULE PO SCH (09:03)
[2019-03-01] MEDS: CHOLECALCIFEROL 400 UNITS TABLET PO SCH (09:04)
[2019-03-01] MEDS: OMEGA-3 FATTY ACIDS/FISH OIL CAPSULE PO SCH (09:04)
[2019-03-01] MEDS: SULFAMETH/TRIMETH 800/160 MG TABLET PO SCH (09:04)
[2019-03-01] MEDS: MULTIVIT, IRON, MIN NO. 8, FA TABLET PO SCH (09:04)
[2019-03-01] MEDS: METOPROLOL SUCCINATE XL 25 MG TAB.SR.24H PO SCH (09:05)
[2019-03-01] MEDS: Z GUARD REMEDY PASTE 57 GM TUBE TOP SCH (09:08)
[2019-03-01] MEDS: SODIUM HYPOCHLORITE 0.125% 473 ML BOTTLE TP SCH (09:09)
[2019-03-01] MEDS: DRONEDARONE 400 MG PO SCH (09:23)
[2019-03-01] MEDS: CALCIUM CARBONATE 500 MG TABLET PO SCH (09:23)
[2019-03-01] MEDS: ALFUZOSIN HCL 10 MG TAB.SR.24H PO SCH (10:48)
[2019-03-01 11:07] VITALS: BP 124/66
--- NOTE | 2019-03-01 14:01 | NUR ---
WOUND CARE FOLLOWUP: PT SEEN FOR WOUND VAC DRESSING CHANGE. DRESSING REMOVED FROM SURGICAL SITE LEFT ANKLE. WOUND MEASURES 5.5CM X 3CM X 0.2CM AND IS RED IN COLOR WITH GRANULATION TISSUE AND SMALL AMOUNT OF YELLOW TISSUE IN CENTRAL PART OF WOUND. DRAINAGE IS RED, NO ODOR. PERIWOUND AREA IS CLEAR. NO FLUCTUANCE. SKIN PREP AND VAC DRAPE APPLIED TO PERIWOUND AREA, GRANUFOAM TO WOUND. VAC AT 125mmHg CONTINUOUS SETTING. GAUZE AND KERLIX WRAP APPLIED GENTLY. PT REFUSED DERRICK BANDAGE. PT TOLERATED WELL. PLAN NEXT DRESSING CHANGE WEDNESDAY. LEFT LEG ELEVATED ON PILLOW.
[2019-03-01] MEDS: IV NS 1000 ML 1,000 ML IV PRN (14:43)
[2019-03-01] MEDS ORDERED: ALFU10TA PO (15:31)
[2019-03-01] MEDS ORDERED: PHEN57OI3 RC (15:31)
[2019-03-01] MEDS ORDERED: CLOT45CR7 VG (15:31)
[2019-03-01] MEDS ORDERED: SULF1TAB3 PO (15:31)
[2019-03-01] MEDS ORDERED: GABA-534 PO (15:31)
[2019-03-01] MEDS ORDERED: NORT10CA PO (15:31)
[2019-03-01 15:33] VITALS: BP 104/48
--- NOTE | 2019-03-01 18:55 | NUR ---
PATIENT AOX4 THROUGHOUT THE SHIFT. WOUND VAC DRESSING CHANGED BY WOUND CARE NURSE TODAY. PATIENT COMPLIANT WITH ALL CARE. PLAN FOR DISCHARGE TODAY PER ORDERS. FAMILY TO VENEER PRESS OPERATOR PATIENT AFTER 1900. DISCHARGE INSTRUCTIONS DONE.
--- NOTE | 2019-03-01 20:30 | NUR ---
PT DISCHARGED AND WHEELED OUT VIA WHEELCHAIR WITH BINDERY TECHNICIAN. DISCHARGE INSTRUCTION GIVENTO PT AND DAUGHTER. PT AND FAMILY UNDERSTAND . DISCHARGE PAPERS GIVEN. BELONGING LIST GIVEN. IV TAKEN OUT. ID BAND TAKEN OFF. PT GET HOME WITH PERSONAL WOUND VAC. PT STABLE AND IN NO ACUTE DISTRESS. SAFETY PROVIDED.
== END 2019-03-01 21:09 | disposition home health service (06) | DRG 463 ==
LOC: ER 20:40 → TELE3 02-22 01:11 → MEDSURG3 02-22 11:45 → TELE3 02-27 16:14 → MEDSURG3 02-28 11:55
PROVIDERS: ADMIT Nurse Practitioner Acute Care; ATTEND Nurse Practitioner Acute Care
PROC: 05HY33Z Insertion of Infusion Device into Upper Vein, Percutaneous Approach (ICD-10-PCS; principal; 2019-02-22)
PROC: 0JBP0ZZ Excision of Left Lower Leg Subcutaneous Tissue and Fascia, Open Approach (ICD-10-PCS; 2019-02-27)
PROC: 0QPH04Z Removal of Internal Fixation Device from Left Tibia, Open Approach (ICD-10-PCS; 2019-02-27)
DX: T84.623A Infection and inflammatory reaction due to internal fixation device of left tibia, initial encounter (principal); A41.51 Sepsis due to Escherichia coli [E. coli]; N10 Acute pyelonephritis; L97.329 Non-pressure chronic ulcer of left ankle with unspecified severity; D68.59 Other primary thrombophilia; E44.1 Mild protein-calorie malnutrition; L03.116 Cellulitis of left lower limb; L97.328 Non-pressure chronic ulcer of left ankle with other specified severity; K58.9 Irritable bowel syndrome, unspecified; G47.30 Sleep apnea, unspecified; I48.0 Paroxysmal atrial fibrillation; E66.9 Obesity, unspecified; Z68.25 Body mass index [BMI] 25.0-25.9, adult; B96.20 Unspecified Escherichia coli [E. coli] as the cause of diseases classified elsewhere; Y79.3 Surgical instruments, materials and orthopedic devices (including sutures) associated with adverse incidents; E11.622 Type 2 diabetes mellitus with other skin ulcer; I87.2 Venous insufficiency (chronic) (peripheral); B95.61 Methicillin susceptible Staphylococcus aureus infection as the cause of diseases classified elsewhere; K64.9 Unspecified hemorrhoids; N76.0 Acute vaginitis; Z90.11 Acquired absence of right breast and nipple; Z85.3 Personal history of malignant neoplasm of breast; Z74.01 Bed confinement status; Z87.440 Personal history of urinary (tract) infections; Z93.6 Other artificial openings of urinary tract status; Z79.02 Long term (current) use of antithrombotics/antiplatelets; M85.872 Other specified disorders of bone density and structure, left ankle and foot; S82.52XD Displaced fracture of medial malleolus of left tibia, subsequent encounter for closed fracture with routine healing; V03.99XD Pedestrian with other conveyance injured in collision with car, pick-up truck or van, unspecified whether traffic or nontraffic accident, subsequent encounter; G62.2 Polyneuropathy due to other toxic agents; T45.1X5A Adverse effect of antineoplastic and immunosuppressive drugs, initial encounter; Y92.89 Other specified places as the place of occurrence of the external cause; G89.21 Chronic pain due to trauma; I10 Essential (primary) hypertension; E11.621 Type 2 diabetes mellitus with foot ulcer; I83.023 Varicose veins of left lower extremity with ulcer of ankle
CPT/HCPCS: 36415; 70030-TC; 71045; 73610; 73700; 83605; 83690; 83735; 84100; 85025; 85730; 87040; 87070; 87075; 87077; 87086; 93005; 97110; 97116; 97165; 97530; 97535; A4217; A4649; A4663; A9150; G0378; J0690; J0696; J1170; J2250; J2405; J2543; J2765; J3010; J3370; J3490; J7030; J7050; J7060; J7120; J8499

== ENCOUNTER 2019-06-25 15:51 | Emergency (ER) | payer MEDICARE, MEDICAID ==
[~2019-06-25] VITALS: Ht 157.5 cm; Wt 63.5 kg
[~2019-06-25 15:51] MED LIST changes: -ACET-2030 PO; +ALFU10TA PO; +CALC500T89 PO; +CHOL20004 PO; +CLOT45CR7 VG; +DABI75CA3 PO; +GABA-534 PO; -GABA300C PO; -NITR100C6 PO; +NORT10CA PO; -ONDA4TAB5 PO; -OXYC5TAB3 PO; +PHEN57OI3 RC; +SULF1TAB3 PO
--- NOTE | 2019-06-25 16:34 | NUR ---
DR Kamara at the bedside for MSE.
[2019-06-25] MEDS ORDERED: IV NS 1000 ML 1,000 ML IV ONE (16:45)
[2019-06-25] MEDS ORDERED: PANTOPRAZOLE SODIUM 40 MG VIAL IV ONE (16:45)
[2019-06-25 16:56] LABS: BASOPHILS % (AUTO) 0.3 % (0.0-2.0); EOSINOPHILS # (AUTO) 0.1 K/uL (0.0-0.7); EOSINOPHILS % (AUTO) 2.1 % (0.0-7.0); HEMATOCRIT 42.4 % (31.2-41.9); LYMPHOCYTES # (AUTO) 1.5 K/uL (20.0-40.0); LYMPHOCYTES % (AUTO) 35.9 % (20.5-51.5); MEAN CORPUSCULAR HEMOGLOBIN 28.7 uug (24.7-32.8); MEAN CORPUSCULAR HGB CONC 33 g/dL (32.3-35.6); MEAN CORPUSCULAR VOLUME 87.3 fL (75.5-95.3); MONOCYTES # (AUTO) 0.3 K/uL (2.0-10.0); NEUTROPHILS # (AUTO) 2.4 K/uL (1.8-8.9); NEUTROPHILS % (AUTO) 55.7 % (38.5-71.5); PLATELET COUNT (AUTO) 176 K/uL (179-408); RED BLOOD CELL COUNT(AUTO) 4.86 MIL/uL (3.63-4.92); WHITE BLOOD COUNT (AUTO) 4.3 K/uL (3.8-11.8)
[2019-06-25 17:06] LABS: CREATININE 1.2 mg/dL (0.6-1.3); POTASSIUM 4.4 mmol/L (3.5-5.1)
[2019-06-25 17:12] LABS: BILIRUBIN,DIRECT 0.1 mg/dL (0.0-0.2); BILIRUBIN,TOTAL 0.4 mg/dL (0.2-1.0); TOTAL PROTEIN, SERUM 7.4 g/dL (6.4-8.2)
[2019-06-25] MEDS ORDERED: PANTOPRAZOLE SODIUM 40 MG VIAL ONE (17:36)
[2019-06-25 17:40] LABS: *BILIRUBIN,URIN NEGATIVE (NEGATIVE); *BLOOD, URINE 2+ (NEGATIVE); *CLARITY,URINE SLIGHTLY CLOUDY (CLEAR); *COLOR,URINE YELLOW (YELLOW); *KETONES,URINE 1+ (NEGATIVE); *UROBILINOGEN,URINE 0.2 E.U./dl (NORMAL); LEUKOCYTE ESTERASE ,URINE 1+ (NEGATIVE); NITRITE, URINE NEGATIVE (NEGATIVE); PH,URINE 5.5 (5.0-8.0); UGLUCOSE NEGATIVE (NEGATIVE)
[2019-06-25 17:52] LABS: BACTERIA,URINE FEW /HPF (NONE SEEN); SQUAMOUS EPITHELIAL CELL,UR MODERATE /HPF (NONE SEEN)
--- NOTE | 2019-06-25 18:17 | NUR ---
Patient is resting comfortably in bed with eyes closed, NAD noted.
--- NOTE | 2019-06-25 18:34 | NUR ---
IV removed. Catheter intact and site benign. Pressure and 4x4 gauze applied to site. No bleeding noted.
[2019-06-25 18:39] VITALS: BP 117/60
--- NOTE | 2019-06-25 18:41 | NUR ---
Patient discharged to home in stable conditon. Written and verbal after care instructions given. Patient verbalizes understanding of instructions.
== END 2019-06-25 18:41 | disposition home or self-care (01) ==
LOC: ER 15:51
DX: K29.70 Gastritis, unspecified, without bleeding (principal); R30.0 Dysuria; I10 Essential (primary) hypertension; Z88.8 Allergy status to other drugs, medicaments and biological substances; Z79.899 Other long term (current) drug therapy
CPT/HCPCS: 36415; 74176; 80048; 80076; 81000; 81001; 83690; 84484; 85025; 85730; 87086; 93005; 96361; 96374; 99284; C9113; 70030-TC; A4663; J7030

== ENCOUNTER 2019-07-05 10:11 | Emergency (ER) | payer MEDICARE, MEDICAID ==
[~2019-07-05] VITALS: Ht 157.5 cm; Wt 63.5 kg
--- NOTE | 2019-07-05 10:26 | NUR ---
Patient was seen by Dr Link. Urine sent to lab.
[2019-07-05 10:34] LABS: *BILIRUBIN,URIN NEGATIVE (NEGATIVE); *BLOOD, URINE 1+ (NEGATIVE); *CLARITY,URINE CLEAR (CLEAR); *COLOR,URINE YELLOW (YELLOW); *KETONES,URINE NEGATIVE (NEGATIVE); *UROBILINOGEN,URINE 0.2 E.U./dl (NORMAL); LEUKOCYTE ESTERASE ,URINE NEGATIVE (NEGATIVE); NITRITE, URINE NEGATIVE (NEGATIVE); UGLUCOSE NEGATIVE (NEGATIVE)
[2019-07-05 10:45] LABS: BASOPHILS % (AUTO) 0.6 % (0.0-2.0); EOSINOPHILS # (AUTO) 0.1 K/uL (0.0-0.7); EOSINOPHILS % (AUTO) 1.5 % (0.0-7.0); HEMATOCRIT 40.2 % (31.2-41.9); HEMOGLOBIN 13.3 g/dL (10.9-14.3); LYMPHOCYTES # (AUTO) 1.3 K/uL (20.0-40.0); LYMPHOCYTES % (AUTO) 31.9 % (20.5-51.5); MEAN CORPUSCULAR HEMOGLOBIN 29.1 uug (24.7-32.8); MEAN CORPUSCULAR HGB CONC 33 g/dL (32.3-35.6); MEAN CORPUSCULAR VOLUME 88.3 fL (75.5-95.3); MONOCYTES # (AUTO) 0.2 K/uL (2.0-10.0); MONOCYTES % (AUTO) 5.3 % (0.0-11.0); NEUTROPHILS # (AUTO) 2.4 K/uL (1.8-8.9); NEUTROPHILS % (AUTO) 60.7 % (38.5-71.5); PLATELET COUNT (AUTO) 158 K/uL (179-408); RED BLOOD CELL COUNT(AUTO) 4.56 MIL/uL (3.63-4.92)
[2019-07-05 10:49] LABS: CARBON DIOXIDE 30 mmol/L (21-32); CHLORIDE 107 mmol/L (98-107); CREATININE 0.7 mg/dL (0.6-1.3); GLUCOSE 90 mg/dL (74-106); UREA NITROGEN, BLOOD 14 mg/dL (7-18)
[2019-07-05 10:50] LABS: BACTERIA,URINE FEW /HPF (NONE SEEN); SQUAMOUS EPITHELIAL CELL,UR FEW /HPF (NONE SEEN); WBC,URINE 0-3 /HPF (0-3)
[2019-07-05 10:55] LABS: ALANINE AMINOTRANSFERASE 14 U/L (14-59); ALKALINE PHOSPHATASE 58 U/L (50-136); ASPARTATE AMINOTRANSFERASE 13 U/L (15-37); BILIRUBIN,DIRECT 0.1 mg/dL (0.0-0.2); BILIRUBIN,TOTAL 0.4 mg/dL (0.2-1.0); LIPASE 142 U/L (73-393); TOTAL PROTEIN, SERUM 7.2 g/dL (6.4-8.2)
--- NOTE | 2019-07-05 11:14 | NUR ---
Awaiting test results. Patient is awake and alert, son at bedside.
--- NOTE | 2019-07-05 12:07 | NUR ---
DC, Rx and follow up instructions given and explained to patient an son who states they understands all instructions.
== END 2019-07-05 12:08 | disposition home or self-care (01) ==
LOC: ER 10:11
DX: R20.2 Paresthesia of skin (principal); R30.0 Dysuria; I10 Essential (primary) hypertension; G89.29 Other chronic pain; M54.9 Dorsalgia, unspecified; Z88.8 Allergy status to other drugs, medicaments and biological substances; Z79.899 Other long term (current) drug therapy
CPT/HCPCS: 36415; 70030-TC; 83690; 85025; 87086; 93005; A4663

== ENCOUNTER 2020-03-21 18:41 | Emergency (ER) | payer MEDICARE, OTHER ==
[~2020-03-21] VITALS: Ht 170.2 cm; Wt 77.6 kg
[2020-03-21] MEDS ORDERED: [UNRECOGNIZED DRUG - OTHER] PO (19:15)
[2020-03-21] MEDS ORDERED: GABA100C PO (19:15)
[2020-03-21] MEDS ORDERED: TOPI25TA49 PO (19:15)
--- NOTE | 2020-03-21 19:49 | NUR ---
Patient ambulated with stable gait. A/Ox4. Farsi speaking only. Son at edside to help accomodate translation. Patient came for c/o mid abdominal pain x 4-5 days. Respiratory even and unlabored, no cough no sob, afebrile. No cardiovascular distress noted, all pulses palpable. Denies any n/v but does report diarrhea. Patient in bed at lowest position, sr upx2, call light within reach. Fall precautions implemented per protocol.
[2020-03-21 20:31] LABS: *BILIRUBIN,URIN NEGATIVE (NEGATIVE); *BLOOD, URINE NEGATIVE (NEGATIVE); *CLARITY,URINE CLEAR (CLEAR); *COLOR,URINE YELLOW (YELLOW); *KETONES,URINE NEGATIVE (NEGATIVE); *UROBILINOGEN,URINE 0.2 E.U./dl (NORMAL); LEUKOCYTE ESTERASE ,URINE NEGATIVE (NEGATIVE); NITRITE, URINE NEGATIVE (NEGATIVE); UGLUCOSE NEGATIVE (NEGATIVE)
[2020-03-21] MEDS ORDERED: MORPHINE SULFATE 2 MG/1 ML DISP.SYRIN ONE (20:42)
[2020-03-21] MEDS ORDERED: ONDANSETRON 4 MG/2 ML VIAL ONE (20:42)
[2020-03-21 20:45] LABS: BASOPHILS % (AUTO) 0.7 % (0.0-2.0); EOSINOPHILS # (AUTO) 0.1 K/uL (0.0-0.7); EOSINOPHILS % (AUTO) 1.5 % (0.0-7.0); HEMATOCRIT 39.6 % (31.2-41.9); LYMPHOCYTES # (AUTO) 1.6 K/uL (20.0-40.0); MEAN CORPUSCULAR HEMOGLOBIN 30.1 uug (24.7-32.8); MEAN CORPUSCULAR HGB CONC 33 g/dL (32.3-35.6); MEAN CORPUSCULAR VOLUME 91.5 fL (75.5-95.3); MONOCYTES # (AUTO) 0.2 K/uL (2.0-10.0); NEUTROPHILS # (AUTO) 2.1 K/uL (1.8-8.9); NEUTROPHILS % (AUTO) 52.8 % (38.5-71.5); PLATELET COUNT (AUTO) 167 K/uL (179-408); RED BLOOD CELL COUNT(AUTO) 4.33 MIL/uL (3.63-4.92); WHITE BLOOD COUNT (AUTO) 3.9 K/uL (3.8-11.8)
[2020-03-21] MEDS ORDERED: MORPHINE SULFATE 2 MG/1 ML DISP.SYRIN IV ONE (20:45)
[2020-03-21] MEDS ORDERED: ONDANSETRON 4 MG/2 ML VIAL IV ONE (20:45)
[2020-03-21] MEDS ORDERED: IV NORMAL SALINE 500 ML IV ONE (20:45)
[2020-03-21 21:26] LABS: ALANINE AMINOTRANSFERASE 18 U/L (14-59); ALKALINE PHOSPHATASE 65 U/L (50-136); ASPARTATE AMINOTRANSFERASE 37 U/L (15-37); BILIRUBIN,DIRECT < 0.1 mg/dL (0.0-0.2); BILIRUBIN,TOTAL 0.4 mg/dL (0.2-1.0); CARBON DIOXIDE 27 mmol/L (21-32); CHLORIDE 107 mmol/L (98-107); CREATININE 0.8 mg/dL (0.6-1.3); GLUCOSE 84 mg/dL (74-106); LIPASE 129 U/L (73-393); POTASSIUM 5.5 mmol/L (3.5-5.1); TOTAL PROTEIN, SERUM 7.4 g/dL (6.4-8.2); UREA NITROGEN, BLOOD 15 mg/dL (7-18)
[2020-03-21 22:27] LABS: CREATININE 0.7 mg/dL (0.6-1.3); POTASSIUM 4.2 mmol/L (3.5-5.1)
--- NOTE | 2020-03-21 23:13 | NUR ---
Patient discharged to home in stable condition. Written and verbal after care instructions given. Patient verbalizes understanding of instructions. Stressed follow up or return to ER for worsening s/s.IV removed. Catheter intact and site benign. Pressure and 4x4 gauze applied to site. No bleeding noted. Patient son will be taking patient home.
[2020-03-21 23:14] VITALS: BP 118/75
== END 2020-03-21 23:28 | disposition home or self-care (01) ==
LOC: ER 18:48
DX: R10.84 Generalized abdominal pain (principal); R19.7 Diarrhea, unspecified; Z87.11 Personal history of peptic ulcer disease; R00.1 Bradycardia, unspecified; E87.5 Hyperkalemia; D72.810 Lymphocytopenia; Z87.440 Personal history of urinary (tract) infections; Z85.3 Personal history of malignant neoplasm of breast; G89.21 Chronic pain due to trauma; I10 Essential (primary) hypertension; M54.9 Dorsalgia, unspecified; Z79.02 Long term (current) use of antithrombotics/antiplatelets; Z79.899 Other long term (current) drug therapy
CPT/HCPCS: 36415; 74176; 80048 ×2; 80076; 81001; 83605; 83690; 84484; 85025; 87040 ×2; 87086; 93005; 96361; 96374; 96375; 99285; J2270; J2405; 70030-TC; A4663; J7030; J7040

== ENCOUNTER → 2025-02-13 | Emergency (ER) | payer MEDICARE, OTHER ==
[~2025-02-13] VITALS: Ht 167.6 cm; Wt 82.6 kg
[~2025-02-13] MED LIST changes: -ALFU10TA PO; -AZEL137S7 BNOSTRILS; -CHOL400T PO; -CLOT45CR7 VG; -GABA-534 PO; +GABA100C PO; -NORT10CA PO; -PHEN57OI3 RC; -SULF1TAB3 PO; +SULF1TAB48 PO; +SULFAMETH/TRIMETH 800/160 MG TABLET ONE; +TOPI25TA49 PO; +[UNRECOGNIZED DRUG - OTHER] PO
[2025-02-13 20:37] LABS: *BILIRUBIN,URIN NEGATIVE (NEGATIVE); *BLOOD, URINE 1+ (NEGATIVE); *CLARITY,URINE SLIGHTLY CLOUDY (CLEAR); *COLOR,URINE Other (YELLOW); *KETONES,URINE NEGATIVE (NEGATIVE); *PROTEIN,URINE NEGATIVE (NEGATIVE); LEUKOCYTE ESTERASE ,URINE TRACE (NEGATIVE); NITRITE, URINE POSITIVE (NEGATIVE); UGLUCOSE TRACE (NEGATIVE)
[2025-02-13 20:39] LABS: BACTERIA,URINE FEW /HPF (NONE SEEN); RBC,URINE 0-3 /HPF (0-3)
[2025-02-13 21:20] LABS: BASOPHILS % (AUTO) 0.6 % (0.0-2.0); EOSINOPHILS # (AUTO) 0.1 K/uL (0.0-0.7); EOSINOPHILS % (AUTO) 2.9 % (0.0-7.0); HEMATOCRIT 37.1 % (31.2-41.9); HEMOGLOBIN 12.7 g/dL (10.9-14.3); LYMPHOCYTES # (AUTO) 1.6 K/uL (0.8-4.8); LYMPHOCYTES % (AUTO) 38.7 % (20.5-51.5); MEAN CORPUSCULAR HEMOGLOBIN 30.2 uug (24.7-32.8); MEAN CORPUSCULAR HGB CONC 34 g/dL (32.3-35.6); MEAN CORPUSCULAR VOLUME 88.1 fL (75.5-95.3); MONOCYTES # (AUTO) 0.3 K/uL (0.1-1.30); MONOCYTES % (AUTO) 6.4 % (0.0-11.0); NEUTROPHILS # (AUTO) 2.1 K/uL (1.8-8.9); NEUTROPHILS % (AUTO) 51.4 % (38.5-71.5); PLATELET COUNT (AUTO) 148 K/uL (179-408); RED BLOOD CELL COUNT(AUTO) 4.21 MIL/uL (3.63-4.92); RED CELL DISTRIBUTION WIDTH 13.4 % (12.3-17.7)
[2025-02-13 21:23] LABS: DIFFERENTIAL COMMENT 1
[2025-02-13 21:27] LABS: CALCIUM 10.2 mg/dL (8.5-10.1); CARBON DIOXIDE 33 mmol/L (21-32); CHLORIDE 107 mmol/L (98-107); CREATININE 0.8 mg/dL (0.6-1.3); GLUCOSE 97 mg/dL (74-106); POTASSIUM 4.7 mmol/L (3.5-5.1); SODIUM SERUM 143 mmol/L (136-145); UREA NITROGEN, BLOOD 17 mg/dL (7-18)
[2025-02-13] MEDS: SULFAMETH/TRIMETH 800/160 MG TABLET PO ONE (22:09)
[2025-02-13 22:11] VITALS: BP 173/80; O2SAT 95
== END | disposition home or self-care (01) ==
LOC: ER 19:30 → EDBD 19:30
DX: N39.0 Urinary tract infection, site not specified (principal); M54.9 Dorsalgia, unspecified; G89.29 Other chronic pain; I10 Essential (primary) hypertension; M19.90 Unspecified osteoarthritis, unspecified site; Z79.02 Long term (current) use of antithrombotics/antiplatelets; Z79.899 Other long term (current) drug therapy; Z85.3 Personal history of malignant neoplasm of breast; Z87.440 Personal history of urinary (tract) infections; Z88.5 Allergy status to narcotic agent; Z90.11 Acquired absence of right breast and nipple; Z87.09 Personal history of other diseases of the respiratory system
CPT/HCPCS: 36415; 85025; 87086; A4606; A4663